=== PATIENT | female | born 1945 | race Caucasian/White ===

== ENCOUNTER 2016-06-18 19:01 | Observation (INO) | payer MEDICARE, BC ==
[~2016-06-18] VITALS: Ht 167.6 cm; Wt 80.2 kg
[~2016-06-18 19:01] MED LIST: ASPIRIN 81M81 MG/TA2 PO; CALCIUM + D 6001 TA1 PO; LEVAQUIN 750MG750 M1 PO; MICARDIS HCT 121 TA1 PO; MOTRIN 600600 MG/TAB PO; MULTIPLE VITAMI1 TAB PO; OS-CAL 500 + D1 TAB PO; PREDNISONE 5MG5 MG PO; RT ADVAIR 228 DISKUS IH; RT SPIRIVA18 MCG IH; TIAZAC300 MG PO; TYLENOL EXTRA500 M1 PO; VENTOLIN0.09 MG IH; VITAMIN D1000 IU PO
[2016-06-18 21:03] LABS: HEMATOCRIT 37.6 % (37.0-47.0); HEMOGLOBIN 12.5 g/dl (12.5-16.0); MEAN CELL VOLUME 89 fl (80.0-100.0); MEAN CORPUSCULAR HEMOGLOBIN 30 pg (27.0-31.0); MEAN CORPUSCULAR HGB CONC 33 g/dl (33.0-37.0); MEAN PLATELET VOLUME 8.8 fl (7.4-10.4); PLATELET COUNT 366 K/mm3 (130-400); RED BLOOD COUNT 4.24 M/mm3 (4.10-5.30); REDCELL DISTRIBUTION WIDTH-CV 13.8 % (11.5-14.5)
[2016-06-18 21:05] LABS: ADD PATHOLOGY DIFF REVIEW NO; WHITE BLOOD COUNT 20.3 K/mm3 (4.8-10.8)
[2016-06-18 21:09] LABS: ADJUSTED CALCIUM 9.7 mg/dL (8.4-10.2); ALBUMIN 3.8 gm/dL (3.5-5.0); BILIRUBIN,TOTAL 0.6 mg/dL (0.0-1.0); CALCIUM 9.5 mg/dL (8.4-10.2); CREATININE, serum 0.7 mg/dL (0.52-1.25); POTASSIUM 3.7 mmol/L (3.4-5.0)
[2016-06-18 21:24] LABS: BAND 1 % (0-10); BASOPHIL 1 % (0-2); NEUTROPHILS 94 % (42.0-75.2); TOTAL CELLS COUNTED 100
[2016-06-18 21:25] LABS: ROULEAUX 1+
[2016-06-18 22:21] VITALS: BP 144/71; PULSE 66; TEMP 98.9
[2016-06-18] MEDS ORDERED: TAZTIA300 PO (22:41)
[2016-06-19 06:28] VITALS: BP 122/57; PULSE 73; TEMP 97.3
[2016-06-19 09:54] VITALS: BP 141/69; PULSE 71; TEMP 98
== END 2016-06-19 12:30 | disposition home or self-care (01) ==
LOC: COL.ER 19:01 → SURG 21:42
PROVIDERS: Emergency Medicine
DX: S01.112A Laceration without foreign body of left eyelid and periocular area, initial encounter (principal); S60.221A Contusion of right hand, initial encounter; S20.219A Contusion of unspecified front wall of thorax, initial encounter; S80.02XA Contusion of left knee, initial encounter; K08.89 Other specified disorders of teeth and supporting structures; W01.198A Fall on same level from slipping, tripping and stumbling with subsequent striking against other object, initial encounter; Y93.01 Activity, walking, marching and hiking; R51 Headache; R11.0 Nausea; Y92.009 Unspecified place in unspecified non-institutional (private) residence as the place of occurrence of the external cause; M06.9 Rheumatoid arthritis, unspecified; I10 Essential (primary) hypertension; J43.9 Emphysema, unspecified; Z87.891 Personal history of nicotine dependence
CPT/HCPCS: G0378; J1170; J1885; J2405; J3010; J7030; Q9967

== ENCOUNTER 2018-11-07 17:56 | Inpatient (IN) | payer MEDICARE, BC ==
[~2018-11-07] VITALS: Ht 175.3 cm; Wt 94.5 kg
[2018-11-07] VITALS (260 sets, daily range): BP systolic 111–113; BP diastolic 70–89; PULSE 117–123; TEMP 98.9; O2SAT 89–100
[~2018-11-07 17:56] MED LIST changes: -OS-CAL 500 + D1 TAB PO; +TAZTIA300 PO; +VITAMIN D 1001000 IU PO
[2018-11-07 20:17] LABS: HEMATOCRIT 37.8 % (37.0-47.0); MEAN CELL VOLUME 90 fl (80.0-100.0); MEAN CORPUSCULAR HEMOGLOBIN 29 pg (27.0-31.0); MEAN CORPUSCULAR HGB CONC 32 g/dl (33.0-37.0); MEAN PLATELET VOLUME 8.3 fl (7.4-10.4); PLATELET COUNT 451 K/mm3 (130-400); RED BLOOD COUNT 4.19 M/mm3 (4.10-5.30); REDCELL DISTRIBUTION WIDTH-CV 13.7 % (11.5-14.5)
[2018-11-07 20:41] LABS: ALANINE AMINOTRANSFERASE 62 U/L (9-52); ALBUMIN 3.2 gm/dL (3.5-5.0); ALKALINE PHOSPHATASE 113 U/L (50-136); ANION GAP 10 mmol/L (7-16); AST,SGOT 82 U/L (15-37); BILIRUBIN,TOTAL 0.6 mg/dL (0.0-1.0); BLOOD UREA NITROGEN 28 mg/dL (7-17); CALCIUM 9.6 mg/dL (8.4-10.2); CARBON DIOXIDE 24 mmol/L (22-30); CHLORIDE 104 mmol/L (98-107); CREATININE, serum 0.91 (0.52-1.25); GLUCOSE 148 mg/dL (74-106); POTASSIUM 3.7 mmol/L (3.4-5.0); SODIUM 138 mmol/L (137-145); TOTAL PROTEIN 6.5 gm/dL (6.4-8.2)
[2018-11-07 20:53] LABS: TROPONIN-I < 0.012 ng/mL (0.000-0.035)
[2018-11-07 21:17] LABS: MUCOUS Present /lpf; PH 5 (5-8); SQUAMOUS EPITHELIAL 0-2 /hpf; URINE APPEARANCE Hazy; URINE BACTERIA None Seen /hpf; URINE BILIRUBIN Negative (NEGATIVE); URINE BLOOD Negative (NEGATIVE); URINE COLOR Yellow; URINE GLUCOSE Negative (NEGATIVE); URINE KETONE Negative (NEGATIVE); URINE LEUKOCYTE ESTERASE Negative (NEGATIVE); URINE NITRATE Negative (NEGATIVE); URINE PROTEIN(semi-quant) Negative (NEGATIVE); URINE RBC 0-2 /hpf; URINE UROBILINOGEN Negative (NEGATIVE)
[2018-11-07 21:46] LABS: BAND 1 % (0-10); LYMPHOCYTE 4 % (20.0-51.0); NEUTROPHILS 90 % (42.0-75.2)
[2018-11-07 21:48] LABS: PLATELET ESTIMATE INCREASED (NORMAL)
[2018-11-07 21:53] LABS: COLLECTION METHOD CLEAN CATCH
[2018-11-07] MEDS ORDERED: ELIQUIS 5MG PO (22:14)
--- NOTE | 2018-11-07 23:53 | NUR ---
PT GETTING VERY TIRED AND OUT OF BREATH EVERYTIME SHE NEEDS TO GO TO THE BEDSIDE LUIS, WAGNER PUT IN. SUCTION AT 50 MMHG AND PT VERBALIZES SHE FEELS COMFORTABLE. WILL CONTINUE TO MONITOR.
[2018-11-08] VITALS (1313 sets, daily range): BP systolic 95–127; BP diastolic 58–69; PULSE 90–114; TEMP 98–101.2; O2SAT 90–100
[2018-11-08 06:35] LABS: HEMOGLOBIN 10.6 g/dl (12.5-16.0); MEAN CELL VOLUME 90 fl (80.0-100.0); MEAN CORPUSCULAR HEMOGLOBIN 29 pg (27.0-31.0); MEAN CORPUSCULAR HGB CONC 32 g/dl (33.0-37.0); MEAN PLATELET VOLUME 8.1 fl (7.4-10.4); PLATELET COUNT 401 K/mm3 (130-400); REDCELL DISTRIBUTION WIDTH-CV 13.7 % (11.5-14.5)
[2018-11-08 06:38] LABS: HEMATOCRIT 33.3 % (37.0-47.0)
[2018-11-08 06:49] LABS: ALBUMIN 2.8 gm/dL (3.5-5.0); BILIRUBIN,TOTAL 0.7 mg/dL (0.0-1.0); CALCIUM 8.3 mg/dL (8.4-10.2); CREATININE, serum 0.88 (0.52-1.25); POTASSIUM 3.5 mmol/L (3.4-5.0); TOTAL PROTEIN 5.9 gm/dL (6.4-8.2)
[2018-11-08 07:02] LABS: LYMPHOCYTE 4 % (20.0-51.0); METAMYELOCYTE 1 % (0-0); NEUTROPHILS 88 % (42.0-75.2)
[2018-11-08 07:03] LABS: PLATELET ESTIMATE INCREASED (NORMAL)
--- NOTE | 2018-11-08 08:56 | NUR ---
Vancomycin Initial Dosing Pharmacy Note Ordering provider: Jamilah Gaitan W., MD Indication/duration: PNA -HOSP Relevant comorbidities: ON LEVA PRIOR X 7 DAYS LABS: SCR 0.88 CRCL ~49 Recommendation: Loading dose: 1.5 grams Maintenance dose: 1.5 grams every 12 hours Trough goal: 15-20 ug/mL
--- NOTE | 2018-11-08 10:21 | NUR ---
Patient lives at home in [place], [place] with her (Shawn Chopra [phone]) and plans to return home upon recovery. Patient is independent with daily living activities and is retired from a local [employer]. Patient does not have durable medical equipment anticipated needs at this time, her primary care physician is Dr. Giorgio Easley and her family physician is Dr. Mario Brown, her [facility] is [facility] and she does have advance direcives of healthcare completed but they are not currently in her medical chart. Patient's daughter (Marianna Hester [phone]) is supportive of the patient as needed as well. No further needs and case management social worker will follow as needed.
--- NOTE | 2018-11-08 19:05 | NUR ---
Bedside report received from SARAH Edwards.
--- NOTE | 2018-11-08 20:00 | NUR ---
Patient awake resting in bed watching TV. Patient is alert and oriented x4. No complaints of pain. Patient has a purewick catheter in place and has urine present in the tube. Pads under patient are dry. Assessment complete. Lungs are clear bilaterally and diminished in the bases, especially LLL. Patient has no complaints of cough. She is currently on 3L NC and tolerating well. Patient is SOB with exertion. HR and rhythm are regular with normal S1 and S2 heard. Patient is in sinus rhythm with occassional PVC's. Bowel sounds are active x4. Patient is passing gas. Patient has no further needs at this time. Will continue to monitor. Call light within reach.
--- NOTE | 2018-11-08 20:40 | NUR ---
Dr. Mcdonough at the bedside at this time.
[2018-11-09] VITALS (1388 sets, daily range): BP systolic 94–118; BP diastolic 43–64; PULSE 97–112; TEMP 98.7–101.1; O2SAT 48–100
--- NOTE | 2018-11-09 | NUR ---
Patient asleep at this time but awakens easily to name. No complaints of pain. Vitals obtained and remain stable. No further needs. Will continue to monitor.
--- NOTE | 2018-11-09 01:26 | NUR ---
Patient awake and requesting to sit on the bedpan. Assisted with this. Patient passes a lot of gas, but no stool is produced. Assessment complete. Patient is febrile at 101.1 orally, tylenol provided. Patient has no complaints of pain. She is alert and oriented x4 and follows commands. Lungs are clear in upper lobes bilaterally with diminished bases. Patient becomes very dyspneic with any kind of exertion. Patient states she is coughing up small amounts of yellow sputum now. HR is tachycardic and rhythm is irregular as patient is in afib. Patient is asymptomatic with it. Bowel sounds are active x4. Pulses are palpable in all extremities. Patient has no further needs at this time. Will continue to monitor. Call light within reach
--- NOTE | 2018-11-09 04:00 | NUR ---
Patient awakens to name. Vitals obtained. Temperature is elevated at 100.3, tylenol to be given. Patient has no complaints of pain or SOB. Will continue to monitor. Call light within reach.
[2018-11-09 05:22] LABS: HEMOGLOBIN 10.6 g/dl (12.5-16.0); MEAN CELL VOLUME 88 fl (80.0-100.0); MEAN CORPUSCULAR HEMOGLOBIN 29 pg (27.0-31.0); MEAN CORPUSCULAR HGB CONC 33 g/dl (33.0-37.0); MEAN PLATELET VOLUME 8.2 fl (7.4-10.4); PLATELET COUNT 398 K/mm3 (130-400); RED BLOOD COUNT 3.67 M/mm3 (4.10-5.30); REDCELL DISTRIBUTION WIDTH-CV 13.4 % (11.5-14.5)
[2018-11-09 05:23] LABS: HEMATOCRIT 32.4 % (37.0-47.0)
[2018-11-09 05:32] LABS: ALBUMIN 2.7 gm/dL (3.5-5.0); BILIRUBIN,TOTAL 0.7 mg/dL (0.0-1.0); CALCIUM 8.3 mg/dL (8.4-10.2); CREATININE, serum 0.77 (0.52-1.25); TOTAL PROTEIN 5.8 gm/dL (6.4-8.2)
[2018-11-09 05:36] LABS: POTASSIUM 2.9 mmol/L (3.4-5.0)
[2018-11-09 05:39] LABS: BASOPHIL 1 % (0-2); EOSINOPHIL 4 % (0-4); HYPOCHROMIA 1+; LYMPHOCYTE 8 % (20.0-51.0); NEUTROPHILS 70 % (42.0-75.2); PLATELET ESTIMATE NORMAL (NORMAL)
--- NOTE | 2018-11-09 07:00 | NUR ---
RECEIVED REPORT FROM SARAH MATTHEW. PT SITTING UP IN BED WATCHING TV. PT ON 3L VIA NC. CALL LIGHT WITHIN REACH. VSS. ASSISTED PT TO ORDER BREAKFAST AT THIS TIME.
--- NOTE | 2018-11-09 07:15 | NUR ---
Bedside report given to SARAH Perea.
--- NOTE | 2018-11-09 09:45 | NUR ---
DR KEENE AT BEDSIDE FOR ASSESSMENT, NEW ORDERS RECEIVED. CHARGE NURSE AND NUCLEAR MEDICINE PHYSICIAN NOITIFIED OF TRANSFER ORDERS.
--- NOTE | 2018-11-09 11:30 | NUR ---
US TECH AT BEDSIDE FOR ECHO, PT VERBALIZES UNDERSTANDING OF EXAM.
--- NOTE | 2018-11-09 12:11 | NUR ---
First visit from the tile mechanic helper. No needs rigth now.
[2018-11-09] MEDS ORDERED: PLAVIX 75MG TAB75 MG PO (13:51)
--- NOTE | 2018-11-09 14:20 | NUR ---
PHYSICAL THERAPY AT BEDSIDE WORKING WITH PT. PT INTERACTIVE WITH THERAPY.
--- NOTE | 2018-11-09 15:06 | NUR ---
HR 160s. PT DENIES ANY CP. APPEARS TO BE SHOB. PT STATES SHE CAN FEEL HER HEART POUNDING IN HER NECK. ATTEMPT TO MOISE RUBIN, UNSUCCESSFUL. DR KEENE NOTIFIED. NEW ORDERS. PT AND AT BEDSIDE EDUCATED ON METOPROLOL IV AND MONITORING OF HER HR AND BP. BOTH VERBALIZED UNDERSTANDING. PT CONTINUES TO DENY CP AT THIS TIME. CALL LIGHT WITHIN REACH. CLOSE MONITORING OF HR AND BP.
--- NOTE | 2018-11-09 15:15 | NUR ---
DR KEENE AT BEDSIDE MONITORING PT.
--- NOTE | 2018-11-09 15:20 | NUR ---
LAB AT BEDSIDE.
[2018-11-09 15:42] LABS: CALCIUM 8.7 mg/dL (8.4-10.2); CREATININE, serum 0.74 (0.52-1.25); MAGNESIUM 1.9 mg/dL (1.6-2.3); POTASSIUM 3.7 mmol/L (3.4-5.0)
--- NOTE | 2018-11-09 16:30 | NUR ---
PT OFF BEDPAN AT THIS TIME. PT UNSUCCESSFUL IN HAVING A BM. PUREWICK CATHETER CHANGED AT THIS TIME. LINEN AND GOWN CHANGED AT THIS TIME. PT STATES IT IS A LOT OF WORK FOR HER TO ROLL AROUND THE BED AND IS HARD FOR HER TO BREATHE. PT NOTED SHE STARTED COUGHING UP SPUTUM MORE AFTER ROLLING AROUND. EDUCATED PT ON MOVEMENT IS GOOD FOR HER TO HELP BREAK UP THE MUCUS WITHIN, VERBALIZED UNDERSTANDING. BED LOWERED. VSS. CALL LIGHT WITHIN REACH. FAMILY BROUGHT BACK TO BEDSIDE.
--- NOTE | 2018-11-09 18:00 | NUR ---
DR KEENE AT BEDSIDE FOR ASSESSMENT. NEW ORDERS.
--- NOTE | 2018-11-09 18:10 | NUR ---
SPOKE TO ASHER ABOUT PT'S AFIB RVR TODAY AND PT CURRENTLY HR 130s. ORDERS FOR EKG, RT NOTIFIED.
--- NOTE | 2018-11-09 18:35 | NUR ---
RT AT BEDSIDE FOR EKG.
--- NOTE | 2018-11-09 18:48 | NUR ---
NOTIFIED DR STERLING OF EKG RESULTS, NEW ORDERS RECEIVED.
--- NOTE | 2018-11-09 19:00 | NUR ---
Bedside report received from SARAH Crawford and SARAH Perea
--- NOTE | 2018-11-09 20:30 | NUR ---
Patient back in normal sinus rhythm at this time with ectopy of PAC's and PVC's with some episodes of bigeminy and trigeminy. Patient remains tachycardic in the low 100's.
--- NOTE | 2018-11-09 21:20 | NUR ---
Patient's daughter calls at this time to check on patient and ask some questions about care. Educated on potassium and reasons for replacement. Daughter had concerns that she was more confused today. Patient has been alert and oriented x4 for me and has answered and held conversations appropriately. She has no further questions at this time.
--- NOTE | 2018-11-09 22:30 | NUR ---
patient awake at this time and requesting to use the bedpan again, provided. Patient produces two small hard round stools and a lot of gas. No further needs. Will continue to monitor.
[2018-11-10] VITALS (1366 sets, daily range): BP systolic 91–141; BP diastolic 55–77; PULSE 95–109; TEMP 98.2–100; O2SAT 90–100
--- NOTE | 2018-11-10 | NUR ---
Patient asleep at this time, awakens to name. She has no complaints of pain. vitals obtained and remain stable. Patient is still in normal sinus rhythm. Will continue to monitor. Call light within reach.
--- NOTE | 2018-11-10 04:30 | NUR ---
Patient awake at this time and states that she is not feeling well, temperature taken and is 100.0. asked patient if she would like some tylenol, she states yes and they are provided. Repositioned patient for comfort and got her boosted in the bed with assistance from SARAH Delcid. Removed patient's current purewick catheter and pericare provided. New catheter placed. Patient has no further needs at this time and just requests to sleep some more. Lights turned out and door shut. Will continue to monitor. Call light within reach.
[2018-11-10 05:25] LABS: HEMOGLOBIN 10.8 g/dl (12.5-16.0); MEAN CELL VOLUME 87 fl (80.0-100.0); MEAN CORPUSCULAR HEMOGLOBIN 29 pg (27.0-31.0); MEAN CORPUSCULAR HGB CONC 33 g/dl (33.0-37.0); MEAN PLATELET VOLUME 8.4 fl (7.4-10.4); PLATELET COUNT 422 K/mm3 (130-400); RED BLOOD COUNT 3.77 M/mm3 (4.10-5.30); REDCELL DISTRIBUTION WIDTH-CV 13.4 % (11.5-14.5)
[2018-11-10 05:29] LABS: HEMATOCRIT 32.8 % (37.0-47.0)
[2018-11-10 05:35] LABS: CALCIUM 8.5 mg/dL (8.4-10.2); CREATININE, serum 0.75 (0.52-1.25); POTASSIUM 3.5 mmol/L (3.4-5.0)
[2018-11-10 05:46] LABS: BASOPHIL 1 % (0-2); HYPOCHROMIA 1+; LYMPHOCYTE 2 % (20.0-51.0); MYELOCYTE 2 % (0-0); NEUTROPHILS 89 % (42.0-75.2); PLATELET ESTIMATE INCREASED (NORMAL)
--- NOTE | 2018-11-10 07:10 | NUR ---
Bedside report given to SARAH Hilton
--- NOTE | 2018-11-10 07:10 | NUR ---
Bedside report recieved from SARAH Dela Cruz. MIVF running at ordered rate. Patient denies needs at this time. Purewick in place for UO. 3LO2 in place per NC. Care assumed.
--- NOTE | 2018-11-10 07:32 | NUR ---
Dr. Bennett rounds at this time. Orders as entered CPOE.
--- NOTE | 2018-11-10 07:32 | NUR ---
CT called and plan made to transport patient for ordered CT chest between 0900 and 0930.
--- NOTE | 2018-11-10 08:12 | NUR ---
Patient with nausea and emesis while taking am medications. Cool rag provided to forehead, prn zofran as documented. Will continue to monitor.
--- NOTE | 2018-11-10 09:07 | NUR ---
Patient transported to CT via WC for ordered exam.
--- NOTE | 2018-11-10 09:36 | NUR ---
Patient returns from CT and is returned to ICU monitors.
--- NOTE | 2018-11-10 09:50 | NUR ---
Bedside thoracentesis completed by Dr. Bennett with prior consent signed. Procedure duration from 937 to 949. This RN to monitor. Patient tolerates procedure without complication with approximately 30ml of fluid removed. Labs ordered as entered CPOE by MD. Care ongoing.
--- NOTE | 2018-11-10 09:55 | NUR ---
Dr. Bennett calls consult to Dr. Sims.
--- NOTE | 2018-11-10 10:01 | NUR ---
Dr. Fernandes rounds at this time. Orders as entered CPOE.
--- NOTE | 2018-11-10 10:03 | NUR ---
Consult called to Dr. Owen.
--- NOTE | 2018-11-10 10:53 | NUR ---
PICC inserted at this time by ROOPA
[2018-11-10 11:13] LABS: GLUCOSE,PLEURAL FLUID 91 mg/dL; TOTAL PROTEIN,PLEURAL FLUID 3.4 gm/dL
[2018-11-10 11:15] LABS: PLEURAL FLUID RBC 11000 /mm3 (0-0); PLEURAL FLUID WBC 17845 /mm3
[2018-11-10 12:12] LABS: PLEURAL FLUID APPEARANCE HAZY; PLEURAL FLUID COLOR YELLOW
--- NOTE | 2018-11-10 18:57 | NUR ---
Bedside report received from SARAH Hilton
--- NOTE | 2018-11-10 19:45 | NUR ---
Patient awake and watching TV in bed. She is alert and oriented x4 and follows commands. Assessment complete. Patients lungs are clear in the upper lobes with diminished bases with LLL being absent. HR and rhythm are regular with normal S1 and S2, she is tachycardic in the low 100's. Bowel sounds are active x4. Pulses are palpable in all extremities. Patient has no complaints of pain. States she will need to use the restroom soon, but wants to wait for now. She will call when ready. No further needs at this time. Will continue to monitor. Call light within reach.
[2018-11-10 21:25] LABS: MUCOUS Present /lpf; PH 6 (5-8); SQUAMOUS EPITHELIAL 0-2 /hpf; URINE APPEARANCE Cloudy; URINE BACTERIA Rare /hpf; URINE BILIRUBIN Negative (NEGATIVE); URINE BLOOD 2+ (NEGATIVE); URINE COLOR Yellow; URINE GLUCOSE Negative (NEGATIVE); URINE KETONE Negative (NEGATIVE); URINE LEUKOCYTE ESTERASE 3+ (NEGATIVE); URINE NITRATE Negative (NEGATIVE); URINE PROTEIN(semi-quant) 1+ (NEGATIVE); URINE UROBILINOGEN Negative (NEGATIVE)
[2018-11-10 21:28] LABS: COLLECTION METHOD CLEAN CATCH
[2018-11-11] VITALS (1195 sets, daily range): BP systolic 112–123; BP diastolic 47–73; PULSE 90–105; TEMP 98.1–99; O2SAT 88–100
--- NOTE | 2018-11-11 | NUR ---
Patient asleep, but awakens to door opening. Patient is showing no signs of distress and does not have complaints of pain. Vitals obtained and remain stable. Patient would like to go to sleep now. Lights turned off and door closed. No further needs at this time. Will continue to monitor. Call light within reach.
--- NOTE | 2018-11-11 04:00 | NUR ---
Patient calls at this time and needs help getting adjusted in bed. Assisted patient with this. She has no complaints of pain, just some tenderness in her belly if pressure is applied. Vitals obtained and remain WNL. No further needs at this time. Will continue to monitor. Call light within reach.
[2018-11-11 04:55] LABS: MEAN CELL VOLUME 89 fl (80.0-100.0); MEAN CORPUSCULAR HGB CONC 33 g/dl (33.0-37.0); MEAN PLATELET VOLUME 8.4 fl (7.4-10.4); PLATELET COUNT 428 K/mm3 (130-400); RED BLOOD COUNT 3.41 M/mm3 (4.10-5.30); REDCELL DISTRIBUTION WIDTH-CV 13.4 % (11.5-14.5)
[2018-11-11 05:00] LABS: HEMATOCRIT 30.2 % (37.0-47.0); HEMOGLOBIN 9.8 g/dl (12.5-16.0); MEAN CORPUSCULAR HEMOGLOBIN 29 pg (27.0-31.0)
[2018-11-11 05:06] LABS: CALCIUM 8.2 mg/dL (8.4-10.2); CREATININE, serum 0.83 (0.52-1.25); POTASSIUM 3.8 mmol/L (3.4-5.0)
[2018-11-11 05:13] LABS: MYELOCYTE 1 % (0-0); NEUTROPHILS 96 % (42.0-75.2); PLATELET ESTIMATE INCREASED (NORMAL)
[2018-11-11 05:14] LABS: HYPOCHROMIA 1+
--- NOTE | 2018-11-11 07:00 | NUR ---
RECEIVED REPORT FROM SARAH MATTHEW. PT SLEEPING AT THIS TIME. NS INFUSING AT 75ML/HR. PT ON 4L VIA NC. VSS. PUREWICK IN PLACE. CALL LIGHT WITHIN REACH.
--- NOTE | 2018-11-11 07:07 | NUR ---
Bedside report given to SARAH Perea
--- NOTE | 2018-11-11 07:25 | NUR ---
DR HINDS AT BEDSIDE FOR ASSESSMENT.
--- NOTE | 2018-11-11 09:30 | NUR ---
PT ASSISTED X1 TO BSC AND THEN TO RECLINER BY PHYSICAL THERAPY. CALL LIGHT WITHIN REACH. PUREWICK CATHETER CHANGED AT 1000. PT REMAINS ON 4L VIA NC. REMAINS AT BEDSIDE. DENIES ANY FURTHER NEEDS AT THIS TIME. VSS.
--- NOTE | 2018-11-11 10:34 | NUR ---
DR SU AT BEDSIDE FOR ASSESSMENT.
--- NOTE | 2018-11-11 11:11 | NUR ---
O2 DECREASED TO 3L VIA NC. PT REMINS IN RECLINER AT THIS TIME. CALL LIGHT WITHIN REACH.
--- NOTE | 2018-11-11 12:12 | NUR ---
PT ASSISTED TO BSC THEN BACK TO BED WITH X1 ASSIST. PT TOLERATED WELL. PT ABLE TO REPOSITION SELF IN BED. PUREWICK CATHETER CHANGED. CALL LIGHT WITHIN REACH. IV INFUSING WITHOUT DIFFICULTIES. VSS.
--- NOTE | 2018-11-11 12:45 | NUR ---
DR PLATA AT BEDSIDE TO DISCUSS CHEST TUBE PLACEMENT TOMORROW. ORDERS FOR PT TO BE NPO AFTER MIDNIGHT TONIGHT FOR PROCEDURE TOMORROW. PT VERBALIZED UNDERSTANDING.
--- NOTE | 2018-11-11 12:58 | NUR ---
O2 DECREASED TO 2L VIA NC. NO ACUTE S/S OF RESP DISTRESS NOTED. PT ABLE TO TALK IN FULL SENTENCES. DENIES ANY NEEDS AT THIS TIME.
--- NOTE | 2018-11-11 13:31 | NUR ---
UPDATED DR BALL ON PT'S STATUS, NO NEW ORDERS.
--- NOTE | 2018-11-11 13:33 | NUR ---
SPOKE WITH DR PLATA'S NURSE, ZENAIDA RN, FOR CHEST TUBE PLACEMENT SCHEDULED FOR 1130 TOMORROW MORNING.
--- NOTE | 2018-11-11 16:45 | NUR ---
DR HINDS AT BEDSIDE TO CHECK ON PT AND DISCUSS POC FOR CHEST TUBE PLACEMENT. PT VERBALIZED UNDERSTANDING. DENIES ANY NEEDS AT THIS TIME.
--- NOTE | 2018-11-11 21:00 | NUR ---
Patient assessed, vitals stable, denies pain. Will continue to monitor.
[2018-11-12] VITALS (822 sets, daily range): BP systolic 101–142; BP diastolic 46–82; PULSE 70–102; TEMP 97.8–98.8; O2SAT 88–100
[2018-11-12 06:23] LABS: MEAN CELL VOLUME 88 fl (80.0-100.0); MEAN CORPUSCULAR HGB CONC 32 g/dl (33.0-37.0); MEAN PLATELET VOLUME 8.6 fl (7.4-10.4); PLATELET COUNT 426 K/mm3 (130-400); RED BLOOD COUNT 3.12 M/mm3 (4.10-5.30); REDCELL DISTRIBUTION WIDTH-CV 13.7 % (11.5-14.5)
[2018-11-12 06:27] LABS: HEMATOCRIT 27.5 % (37.0-47.0); HEMOGLOBIN 8.9 g/dl (12.5-16.0); MEAN CORPUSCULAR HEMOGLOBIN 29 pg (27.0-31.0)
[2018-11-12 06:33] LABS: CALCIUM 7.1 mg/dL (8.4-10.2); CREATININE, serum 0.79 (0.52-1.25); POTASSIUM 3.1 mmol/L (3.4-5.0)
[2018-11-12 07:36] LABS: LYMPHOCYTE 1 % (20.0-51.0); NEUTROPHILS 98 % (42.0-75.2); PLATELET ESTIMATE INCREASED (NORMAL)
--- NOTE | 2018-11-12 10:57 | NUR ---
ENVIRONMENTAL PROTECTION GEOLOGIST student attended clinical rounds with the team. The patient is to have a chest tube insertion today, 11/12. SW will continue to follow to ensure safe discharge.
--- NOTE | 2018-11-12 11:00 | NUR ---
Patient transported to OR by surgical staff for schedule procedure.
--- NOTE | 2018-11-12 11:50 | NUR ---
Patient returns from OR with left sided chest tube. Patient returned to monitors and RN calls for orders for pain managment. Vitals signs and assessment as charted. Chest tube placed to 20cm suction as per orders. Care resumed.
--- NOTE | 2018-11-12 14:43 | NUR ---
CUPOLA MELTER HELPER student met with the patient to present the [email or web address] list of home health agencies in [place], in case home health is recommended. human resources services specialist will continue to follow to ensure a safe discharge.
--- NOTE | 2018-11-12 16:29 | NUR ---
Hospitalist and Pharmacy made aware of vanc trough results. Pharmacy to re-time and dose.
--- NOTE | 2018-11-12 16:32 | NUR ---
Vancomycin Follow-up Pharmacy Note Current regimen: 1.5 g IV q12hr Vancomycin trough: 24.68 Adjustments: Reduction of dose to 1 g IV q12h, restart at 2200 on 11/12/18, and recheck trough on 11/14/18 @ 0930.
--- NOTE | 2018-11-12 20:00 | NUR ---
Patient assessed, vitals stable. States she has nausea and pain. Will administer pain meds and Zofran if availible.
[2018-11-13] VITALS (775 sets, daily range): BP systolic 110–118; BP diastolic 52–79; PULSE 70–85; TEMP 97.7–98.6; O2SAT 92–100
[2018-11-13 06:15] LABS: MEAN CELL VOLUME 90 fl (80.0-100.0); MEAN CORPUSCULAR HGB CONC 32 g/dl (33.0-37.0); MEAN PLATELET VOLUME 8.6 fl (7.4-10.4); PLATELET COUNT 460 K/mm3 (130-400); RED BLOOD COUNT 3.23 M/mm3 (4.10-5.30)
[2018-11-13 06:19] LABS: HEMATOCRIT 29.2 % (37.0-47.0); HEMOGLOBIN 9.2 g/dl (12.5-16.0); MEAN CORPUSCULAR HEMOGLOBIN 28 pg (27.0-31.0)
[2018-11-13 06:29] LABS: C-REACTIVE PROTEIN 7.4 mg/dL (0.0-0.9); CALCIUM 7.1 mg/dL (8.4-10.2); CREATININE, serum 0.76 (0.52-1.25); MAGNESIUM 2.3 mg/dL (1.6-2.3)
[2018-11-13 06:57] LABS: BAND 2 % (0-10); LYMPHOCYTE 1 % (20.0-51.0); NEUTROPHILS 93 % (42.0-75.2)
[2018-11-13 07:00] LABS: PLATELET ESTIMATE INCREASED (NORMAL)
--- NOTE | 2018-11-13 09:15 | NUR ---
DR STERLING PRESENT TO ROUND ON PATIENT. PROVIDER UPDATED ON PATIENT'S STATUS. MEDICATIONS REVIEWED. PROVIDER WOULD LIKE TO D/C HCTZ
--- NOTE | 2018-11-13 11:04 | NUR ---
ASSISTED PT IN RETURNING TO BED. Second Light URINE COLLECTION DEVICE REPLACED. PT TOLERATED WELL.
--- NOTE | 2018-11-13 11:33 | NUR ---
Initial visit; Patient thanked Auto Servicer for looking in on her to catch up on news from both her and Auto Servicer's home. Irish is struggling with her health though hopes she is doing better. Auto Servicer wished her well and God's blessings. Irish appeared to be comforted by Auto Servicer's visit.
--- NOTE | 2018-11-13 19:20 | NUR ---
Received report from SARAH Oconnor.
[2018-11-14] VITALS (401 sets, daily range): BP systolic 111–124; BP diastolic 50–70; PULSE 72–86; TEMP 97.6–97.9; O2SAT 68–100
[2018-11-14 05:05] LABS: MEAN CELL VOLUME 89 fl (80.0-100.0); MEAN CORPUSCULAR HGB CONC 31 g/dl (33.0-37.0); MEAN PLATELET VOLUME 8.6 fl (7.4-10.4); PLATELET COUNT 492 K/mm3 (130-400); RED BLOOD COUNT 3.49 M/mm3 (4.10-5.30)
[2018-11-14 05:10] LABS: HEMATOCRIT 31.2 % (37.0-47.0); HEMOGLOBIN 9.8 g/dl (12.5-16.0); MEAN CORPUSCULAR HEMOGLOBIN 28 pg (27.0-31.0)
[2018-11-14 05:15] LABS: CALCIUM 7.7 mg/dL (8.4-10.2); CREATININE, serum 0.96 (0.52-1.25); MAGNESIUM 2.4 mg/dL (1.6-2.3)
[2018-11-14 06:27] LABS: BAND 3 % (0-10); LYMPHOCYTE 7 % (20.0-51.0); NEUTROPHILS 86 % (42.0-75.2)
[2018-11-14 06:28] LABS: ANISOCYTOSIS 1+; HYPOCHROMIA 1+; POIKILOCYTOSIS 1+
--- NOTE | 2018-11-14 07:17 | NUR ---
Gave report to SARAH Weiner.
--- NOTE | 2018-11-14 07:17 | NUR ---
Report received from Ada SMITH. Patient sitting up in bed with eyes closed. Call light at side. Chest tube collection canister secured to bed.
--- NOTE | 2018-11-14 08:20 | NUR ---
Left chest tube dressing saturated with blood and leaking. Current dressing removed and site inspected. Chest tubing kinked, straightened and allowed to drain. Dressing reapplied and secured. Patient tolerates well, will monitor for continued bleeding. Purewick to suction and patient tolerating well. Denies needs at this time. Call light in reach.
--- NOTE | 2018-11-14 10:25 | NUR ---
Vancomycin Follow-up Pharmacy Note Current regimen: VANCOMYCIN 1G Q12H Vancomycin trough: 27.8 Adjustments: HOLD 11/14/18 AM DOSE, RESTART VANCOMYCIN 750MG Q12H AT 2230. TROUGH 11/16/18 @ 1000.
--- NOTE | 2018-11-14 12:00 | NUR ---
PT here to see patient. This RN and PT assisted patient up to BSC and then to recliner. Patient needs 1 assist, RN just there to help with chest tube for transfer. Patient tolerates fair, does complain of pain to that left chest tube site. Will give PRN Toradol and see if that helps with pain management. Purewick removed while patient up in chair at her request. in room. Call light at side and personal items in reach.
--- NOTE | 2018-11-14 14:12 | NUR ---
Report called to Magalis SMITH. Will transfer to room 348 when patient finished with lunch
--- NOTE | 2018-11-14 14:40 | NUR ---
Transferred to room 348 via wheel chair. RN and ACADEMIC AFFAIRS MANAGER in room to meet patient. Transferred to bed with 1:1 assist and tolerates well. Assisted Magalis RN with putting purwick cath in place. Patient tolerates procedure well, attached to wall suction. Call light in reach
--- NOTE | 2018-11-14 14:45 | NUR ---
Received patient from ICU per w/c. Alert. No complaints. O2 on at 3L per nasal cannula. Left chest tube to water seal. Family here.
--- NOTE | 2018-11-14 18:00 | NUR ---
No c/o pain or shortness of breath.
[2018-11-15 01:22] VITALS: BP 125/66; PULSE 88; TEMP 97.9
[2018-11-15 05:41] VITALS: BP 134/62; PULSE 82; TEMP 97.7
[2018-11-15 05:45] LABS: MEAN CELL VOLUME 89 fl (80.0-100.0); MEAN CORPUSCULAR HGB CONC 32 g/dl (33.0-37.0); MEAN PLATELET VOLUME 8.6 fl (7.4-10.4); PLATELET COUNT 485 K/mm3 (130-400); RED BLOOD COUNT 3.23 M/mm3 (4.10-5.30)
[2018-11-15 05:47] LABS: CREATININE, serum 1.02 (0.52-1.25); HEMATOCRIT 28.8 % (37.0-47.0); HEMOGLOBIN 9.3 g/dl (12.5-16.0); MEAN CORPUSCULAR HEMOGLOBIN 29 pg (27.0-31.0)
[2018-11-15 06:16] LABS: BAND 2 % (0-10); LYMPHOCYTE 2 % (20.0-51.0); METAMYELOCYTE 1 % (0-0); NEUTROPHILS 92 % (42.0-75.2); PLATELET ESTIMATE INCREASED (NORMAL)
[2018-11-15 06:17] LABS: HYPERSEGMENTED POLYS PRESENT
--- NOTE | 2018-11-15 06:36 | NUR ---
PT'S EXTERNAL CATHETER WAS REPLACED AT APPROX. 0600 THIS MORNING. NO c/o PAIN WITH THE EXCEPTION OF A LITTLE DISCOMFORT AT CHEST TUBE ENTRY SITE.
[2018-11-15 08:55] VITALS: BP 119/54; PULSE 91; TEMP 97.6
--- NOTE | 2018-11-15 10:30 | NUR ---
Dr. Cruz dc'd chest tube. Vaseline pressure dressing to site. Patient tolerated procedure well. No c/o shortness of breath. O2 on at 2L per nasal cannula.
[2018-11-15 12:24] VITALS: BP 128/68; PULSE 86; TEMP 97.6
[2018-11-15 16:09] VITALS: BP 120/52; PULSE 95; TEMP 97.4
--- NOTE | 2018-11-15 18:00 | NUR ---
Sitting at side of bed. No c/o pain. Serosanguinous drainage from former chest tube site. New pressure dressing applied.
[2018-11-15 19:59] VITALS: BP 128/56; PULSE 93; TEMP 98
--- NOTE | 2018-11-15 22:00 | NUR ---
DRESSING RE-ENFORCED WITH DEBORAH WRAP.
[2018-11-16] VITALS (7 sets, daily range): BP systolic 117–129; BP diastolic 50–67; PULSE 85–101; TEMP 97.3–98.3
--- NOTE | 2018-11-16 05:29 | NUR ---
DRESSING TO LT LATERAL CHEST TUBE SITE CHANGED. OLD DRESSING SATURATED. XEROFORM, 4x4's AND ABD APPLIED.
[2018-11-16 05:47] LABS: CREATININE, serum 0.91 (0.52-1.25); MEAN CELL VOLUME 89 fl (80.0-100.0); MEAN CORPUSCULAR HGB CONC 33 g/dl (33.0-37.0); MEAN PLATELET VOLUME 8.6 fl (7.4-10.4); PLATELET COUNT 455 K/mm3 (130-400); POTASSIUM 4.1 mmol/L (3.4-5.0); RED BLOOD COUNT 2.92 M/mm3 (4.10-5.30); REDCELL DISTRIBUTION WIDTH-CV 14.5 % (11.5-14.5)
[2018-11-16 05:49] LABS: HEMOGLOBIN 8.5 g/dl (12.5-16.0); MEAN CORPUSCULAR HEMOGLOBIN 29 pg (27.0-31.0)
--- NOTE | 2018-11-16 08:00 | NUR ---
PATIENT IS A&O. VSS. C/O MILD DISCOMFORT TO LEFT LAT. CHEST TUBE SITE THAT HAS MOD AMOUNTS OF BLOODY DRAINAGE TO DRESSING NOTED. APPLIED 4X4'S, ABD, FOAM TAPE & ACEWRAP TO PREVIOUS CHEST TUBE SITE. PATIENT DENIES SOB OR CHEST PAIN. NOTED DEMINISHED LLL RIVERA. UPPER A&P LUNG RIVERA CTA. NO COUGH NOTED. PATIENT IS SLOW MOVING BUT IS NOW USING THE BEDSIDE COMMODE. PATIENT VOIDED AND HAD BM THIS AM. RIGHT PICC LINE TO INT. HEAD TO TOE ASSESSMENT COMPLETE.
[2018-11-16 09:02] LABS: BAND 1 % (0-10); LYMPHOCYTE 1 % (20.0-51.0); NEUTROPHILS 95 % (42.0-75.2); NUCLEATED RED BLOOD CELL 1 (0-6); PLATELET ESTIMATE INCREASED (NORMAL); TOXIC GRANULATION PRESENT
--- NOTE | 2018-11-16 11:15 | NUR ---
Follow up visit from the machine applicator cementer. No needs right now.
--- NOTE | 2018-11-16 12:30 | NUR ---
PICC intact right upper arm with sterile dressing change done with insertion site cleansed with chloraprep x 1, chlorhexidine impregnated disk applied, skin prep, stat lock, and tegaderm applied. no signs or symptoms of IV complications noted. no concerns voiced. arm re-wrapped with shirin to protect catheter.
--- NOTE | 2018-11-16 16:30 | NUR ---
PATIENT LEFT LAT. CHEST TUBE SITE BLEED THROUGH OCCLUSIVE DRESSING AGAIN. APPLIED NEW 4X4'S, ABD, FOAM TAPE & ACEWRAP FOR COMPRESSION.
--- NOTE | 2018-11-16 20:30 | NUR ---
Sitting up in bed, alert. Denies pain. Dressing to left chest tube site with DEBORAH dressing CDI. Patient says that she is passing flatus off and on but has not had a bowel movement. Expresses that she is tired and hopes to take a nap. Denies further needs at this time.
--- NOTE | 2018-11-16 23:03 | NUR ---
Lying in bed with eyes closed. Opens eyes when name called. Denies pain or any further needs at this time.
--- NOTE | 2018-11-17 03:15 | NUR ---
Up to commode to urinate and have bowel movment. Upon getting out of bed, dressing to left side of chest where chest tube was is leaking serosanguinous drainage. Removed dressing, large dark red blood clot noted on 4x4's. Area cleansed with saline. Suture intact. Edges well approximated. No redness or edema. 4x4's applied to site and covered with ABD pad. Reinforced with occlusive tape and then an DEBORAH wrap to give the area a pressure dressing. Patient tolerates procedure well. Denies pain. Assisted back into bed. Denies further needs.
[2018-11-17 03:44] VITALS: BP 126/61; PULSE 98; TEMP 98.2
--- NOTE | 2018-11-17 05:42 | NUR ---
Uneventful evening. Dressing change to previous chest tube site on left outer chest one time through the evening. Patient has not complained of any pain. At this time patient resting in bed with eyes closed, respirations even and unlabored, no signs or symptoms of discomfort noted.
[2018-11-17 07:02] LABS: MEAN CELL VOLUME 91 fl (80.0-100.0); MEAN CORPUSCULAR HGB CONC 32 g/dl (33.0-37.0); PLATELET COUNT 381 K/mm3 (130-400); RED BLOOD COUNT 2.63 M/mm3 (4.10-5.30); REDCELL DISTRIBUTION WIDTH-CV 14.8 % (11.5-14.5)
--- NOTE | 2018-11-17 07:14 | NUR ---
Report provided to SARAH Fall.
[2018-11-17 07:17] LABS: HEMATOCRIT 23.8 % (37.0-47.0); HEMOGLOBIN 7.6 g/dl (12.5-16.0); MEAN CORPUSCULAR HEMOGLOBIN 29 pg (27.0-31.0)
[2018-11-17 07:18] LABS: CALCIUM 8.1 mg/dL (8.4-10.2); CREATININE, serum 0.79 (0.52-1.25); POTASSIUM 4.2 mmol/L (3.4-5.0)
[2018-11-17 07:35] VITALS: BP 131/60; PULSE 98; TEMP 98.2
--- NOTE | 2018-11-17 09:45 | NUR ---
Patient alert and oriented, answers questions appropriately. See assessment. Heart tones strong and irregular, radial pulse palpable. Lungs decreased in bases, clear in upper lobes. Encouraged IS, CDB, leg exercises. No other c/o at this time.
[2018-11-17 09:54] LABS: BAND 1 % (0-10); HYPOCHROMIA 2+; LYMPHOCYTE 1 % (20.0-51.0); METAMYELOCYTE 2 % (0-0); MYELOCYTE 4 % (0-0); NEUTROPHILS 91 % (42.0-75.2); PLATELET ESTIMATE NORMAL (NORMAL)
[2018-11-17 11:43] VITALS: BP 140/65; PULSE 105; TEMP 97.9
--- NOTE | 2018-11-17 16:04 | NUR ---
NICKIE met with the patient and her family to discuss home health services. NICKIE presented a list from [email or web address] to the family. The patient chose [facility]. NICKIE faxed referral to [facility]. [facility] reports they can accept the patient for services. NICKIE informed the patient and the patient's nurse. NICKIE will continue to follow to ensure a safe discharge.
[2018-11-17 16:13] VITALS: BP 109/56; PULSE 100; TEMP 97.8
[2018-11-17 18:44] LABS: HEMATOCRIT 23.7 % (37.0-47.0); HEMOGLOBIN 7.5 g/dl (12.5-16.0)
[2018-11-17 20:00] VITALS: BP 127/51; PULSE 102; TEMP 98.1
--- NOTE | 2018-11-17 20:50 | NUR ---
Sitting up in bed. Daughter in room visiting with the patient. Denies pain. Dressing to previous chest tube site on left chest CDI. Patient explains that she is overall feeling better, verbalizes some concern with her blood levels being low and that she may need a blood transfusion. Discussed this further with the patient and that repeat labs will more than likely be obtained in the morning to reassess levels. Patient verbalizes understanding. Denies further needs at this time.
[2018-11-18 00:26] VITALS: BP 133/57; PULSE 100; TEMP 98.1
--- NOTE | 2018-11-18 01:17 | NUR ---
Sitting up in bed with eyes open. Patient explains that she is having nausea. Zofran administered as ordered. Patient repositioned in the bed, denies need to use bathroom. Cool wash cloth provided along with a Sprite as well. Patient denies further needs at this time.
--- NOTE | 2018-11-18 01:56 | NUR ---
Lying in bed on back, eyes closed, respirations even and unlabored. No signs or symptoms of discomfort noted.
[2018-11-18 04:00] VITALS: BP 129/51; PULSE 99; TEMP 98.4
--- NOTE | 2018-11-18 06:20 | NUR ---
Patient had episode of nausea in the middle of the night. Was administered ordered Zofran to alleviate nausea. After medication was administered patient was able to rest with eyes closed. Currently resting in bed with eyes closed, respirations even and unlabored. No signs or symptoms of discomfort noted.
[2018-11-18 06:27] LABS: MEAN CELL VOLUME 92 fl (80.0-100.0); MEAN CORPUSCULAR HGB CONC 32 g/dl (33.0-37.0); MEAN PLATELET VOLUME 8.8 fl (7.4-10.4); PLATELET COUNT 393 K/mm3 (130-400); RED BLOOD COUNT 2.48 M/mm3 (4.10-5.30); REDCELL DISTRIBUTION WIDTH-CV 14.9 % (11.5-14.5)
[2018-11-18 06:29] LABS: HEMATOCRIT 22.7 % (37.0-47.0); HEMOGLOBIN 7.2 g/dl (12.5-16.0); MEAN CORPUSCULAR HEMOGLOBIN 29 pg (27.0-31.0)
[2018-11-18 06:38] LABS: CALCIUM 8.1 mg/dL (8.4-10.2); CREATININE, serum 0.76 (0.52-1.25); POTASSIUM 4.4 mmol/L (3.4-5.0)
--- NOTE | 2018-11-18 07:11 | NUR ---
Report provided to SARAH Fall.
[2018-11-18 08:37] LABS: BAND 3 % (0-10); HYPOCHROMIA 3+; LYMPHOCYTE 2 % (20.0-51.0); METAMYELOCYTE 4 % (0-0); MYELOCYTE 6 % (0-0); NUCLEATED RED BLOOD CELL 1 (0-6); PLATELET ESTIMATE NORMAL (NORMAL)
[2018-11-18 08:38] LABS: NEUTROPHILS 84 % (42.0-75.2)
[2018-11-18 09:18] VITALS: BP 129/51; PULSE 98; TEMP 99.3
--- NOTE | 2018-11-18 10:00 | NUR ---
Patient alert and oriented, answers questions appropriately. See assessment. Lungs decreased in bases, clear in upper lobes. Dressing in place to previous chest tube site, gauze and DEBORAH CDI. No c/o at this time.
[2018-11-18 11:38] VITALS: BP 112/50; PULSE 98; TEMP 98.8
--- NOTE | 2018-11-18 13:42 | NUR ---
INCKIE presented the IM form to the patient. The patient understood and signed the form. A copy was provided to the patient and original was placed in the patient's chart. The patient is needing a walker. NICKIE presented the DME patient choice form. The patient chose [facility] in [place]. A copy of the DME choice form was provided to the patient and the original was placed in the chart. NICKIE faxed order to [facility]. NICKIE will continue to follow.
[2018-11-18 16:35] VITALS: BP 118/52; PULSE 96; TEMP 98.5
--- NOTE | 2018-11-18 20:00 | NUR ---
Pt. sitting up in bed at this time. Pt. is A&OX3, assessment complete. PICC to rt. upperarm patent. Pt. denies pain or other needs at this time. Call light within reach.
[2018-11-18 20:36] VITALS: BP 121/51; PULSE 105; TEMP 98.3
[2018-11-19] VITALS (11 sets, daily range): BP systolic 103–140; BP diastolic 42–56; PULSE 82–103; TEMP 97.5–98.7
[2018-11-19 05:55] LABS: MEAN CELL VOLUME 92 fl (80.0-100.0); MEAN CORPUSCULAR HGB CONC 31 g/dl (33.0-37.0); MEAN PLATELET VOLUME 8.7 fl (7.4-10.4); PLATELET COUNT 331 K/mm3 (130-400); RED BLOOD COUNT 2.35 M/mm3 (4.10-5.30)
[2018-11-19 05:59] LABS: HEMATOCRIT 21.7 % (37.0-47.0); HEMOGLOBIN 6.8 g/dl (12.5-16.0); MEAN CORPUSCULAR HEMOGLOBIN 29 pg (27.0-31.0)
[2018-11-19 06:03] LABS: CALCIUM 7.7 mg/dL (8.4-10.2); CREATININE, serum 0.77 (0.52-1.25)
--- NOTE | 2018-11-19 07:19 | NUR ---
Pt continues to sleep soundly in bed. O2 remains at 2L per NC.
--- NOTE | 2018-11-19 08:10 | NUR ---
Pt is awake and A/Ox4, ambulating from the bathroom to the recliner with SBA + walker, steady gait. Pt states she is having 5/10 pain, stating she has a "scratchy throat" from the dry air. PICC line to the right upper arm is free of complications. Pt denies any other needs.
[2018-11-19 08:11] LABS: BAND 3 % (0-10); EOSINOPHIL 1 % (0-4); LYMPHOCYTE 8 % (20.0-51.0); METAMYELOCYTE 3 % (0-0); MYELOCYTE 2 % (0-0); NEUTROPHILS 83 % (42.0-75.2); PLATELET ESTIMATE NORMAL (NORMAL)
--- NOTE | 2018-11-19 10:22 | NUR ---
Unit of PRBC started at this time per order. Infusion verified with SARAH Abarca. Rate started at 60 ml/hr. Pt was educated on s/s of transfusion reaction, expressed understanding. All initial vital signs were WNL. Nurse to remain at bedside for first 15 min.
--- NOTE | 2018-11-19 10:41 | NUR ---
Pt is tolerating transfusion without difficulty. Rate increased to 100 ml/hr. Dr. Sims in to assess pt. Chest tube site to left side has minimal drainage. Dressing back in place.
--- NOTE | 2018-11-19 12:26 | NUR ---
Pt continues to tolerate blood transfusion without difficulty. Denies pain, denies any other needs.
--- NOTE | 2018-11-19 12:52 | NUR ---
compressed gas plant worker received phone call from daughterMarianna #[phone], stating that family is concerned that patient cannot manage safely at home. Currently family is staying with patient's spouse, as he recently had surgery. Marianna feels that patient is too weak to manage her care and home health is not enough support. Worker met with Dr Mcgarry and rounding team and met with patient. Physician and worker discussed swing bed as an option and patient verbalized that she is agreeable to this discharge plan. Worker made a referral, with faxed information, [facility] and is awaiting acceptance. Tentative plan is to discharge on 11/20/18. Worker contacted patient's spouse, Shawn #[phone], per patient's request and advised of the above information. Worker contacted daughter, Marianna, and advised of the above information. Family is aware that they will need to transport.
--- NOTE | 2018-11-19 13:45 | NUR ---
Pt tolerated blood transfusion without any complications. Pt doing well post transfusion. Denies any other needs.
--- NOTE | 2018-11-19 14:53 | NUR ---
Pt did have small bowel movement, it was soft formed and appeard to be brown in color. Stool for occult was not able to be collected due to stool being mixed with urine in collection hat.
[2018-11-19 15:05] LABS: HEMATOCRIT 27.6 % (37.0-47.0); HEMOGLOBIN 8.8 g/dl (12.5-16.0)
--- NOTE | 2018-11-19 16:13 | NUR ---
Temi with [facility] accepts patient for swing bed on 11/20/18 under the care of Dr Lopez. Dr Lopez requests a physician call prior to discharge at #[phone]. Family is aware that they will transport and will await call from social work on time.
--- NOTE | 2018-11-19 16:15 | NUR ---
social worker health services met with patient and contacted spouse and daughter, Marianna and advised of [facility]'s acceptance to swing bed.
--- NOTE | 2018-11-19 20:05 | NUR ---
Pt. sitting up in bed at this time. Pt. is A&OX3, assessment complete. PICC to rt. upper arm patent. Dressing to lt. lateral chest coming off so changed dressing at this time. 2 4X4's folded and covered with foam tape. Pt. also has an area below incision site where previous tape has caused an abrasion, Placed a telfa dressing to the area to prevent gown from rubbing on skin. Pt. denies pain. Pt. started Golytly bowel prep. Pt. tolerating. Pt. denies further needs, call light within reach.
[2018-11-20] VITALS (12 sets, daily range): BP systolic 106–150; BP diastolic 44–65; PULSE 81–101; TEMP 98–99
--- NOTE | 2018-11-20 06:20 | NUR ---
Pt. slept off and on through the night. Pt. having good progress with bowel prep. Pt. denies pain or other needs at this time. Call light within reach.
[2018-11-20 06:40] LABS: MEAN CELL VOLUME 88 fl (80.0-100.0); MEAN CORPUSCULAR HGB CONC 32 g/dl (33.0-37.0); MEAN PLATELET VOLUME 9.1 fl (7.4-10.4); PLATELET COUNT 321 K/mm3 (130-400); REDCELL DISTRIBUTION WIDTH-CV 16.8 % (11.5-14.5)
[2018-11-20 06:48] LABS: HEMATOCRIT 25.6 % (37.0-47.0); HEMOGLOBIN 8.3 g/dl (12.5-16.0); MEAN CORPUSCULAR HEMOGLOBIN 29 pg (27.0-31.0)
[2018-11-20 06:49] LABS: CALCIUM 7.5 mg/dL (8.4-10.2); CREATININE, serum 0.67 (0.52-1.25); POTASSIUM 3.5 mmol/L (3.4-5.0)
[2018-11-20 07:14] LABS: BAND 2 % (0-10); EOSINOPHIL 1 % (0-4); LYMPHOCYTE 3 % (20.0-51.0); METAMYELOCYTE 3 % (0-0); MYELOCYTE 1 % (0-0); NEUTROPHILS 84 % (42.0-75.2); NUCLEATED RED BLOOD CELL 1 (0-6)
[2018-11-20 07:15] LABS: ANISOCYTOSIS 1+; HYPOCHROMIA 1+
--- NOTE | 2018-11-20 09:45 | NUR ---
Patient alert and oriented, answers questions appropriately. See assessment. Previous left chest tube site with large amount sanguinous drainage noted, dressing changed. Lungs decreased in bases, clear in upper lobes. Continuing bowel prep for colonoscopy this afternoon. No other c/o at this time.
--- NOTE | 2018-11-20 14:00 | NUR ---
Patient to endo for EGD and colonoscopy.
--- NOTE | 2018-11-20 14:13 | NUR ---
[facility] reports they can accept the patient on Friday, 11/23. SW informed the patient's family and the nurse practictioner. catering convention services manager will continue to follow.
--- NOTE | 2018-11-20 15:30 | NUR ---
Patient returns from endo, assessment unchanged.
--- NOTE | 2018-11-20 18:44 | NUR ---
Patient is sitting in bed and finished her broth and is eating sugar free jello. Has no complaints at this time.
--- NOTE | 2018-11-20 21:35 | NUR ---
Up to restroom and returned to bed. Assessment complete. Lungs clear. Heart sounds normal. Bowels active x4. Pulses present throughout. Bilateral lower leg edema +2. Bilateral upper extremity edema +1. PICC to right upper flushed without complications. Left trunk prior chest tube site dressing CDI. Patient has abrasions present from tape-scabbed over. Denies pain. States "I actually feel good." Denies other needs at this time. Call light in reach.
--- NOTE | 2018-11-20 21:37 | NUR ---
Patient daughter called to check on patient. Security code was provided by daughter. Updated. Daughter states patient is in ER at [facility] and will call back later to inform patient on condition.
--- NOTE | 2018-11-20 22:00 | NUR ---
Patient daughter called to inform patient, patient in [facility] for low potassium and low sodium. Patient tearful at this time. Provided emotional support. Will monitor.
--- NOTE | 2018-11-20 23:59 | NUR ---
Patient resting in bed. Denies needs. Call light in reach.
[2018-11-21] VITALS (7 sets, daily range): BP systolic 106–136; BP diastolic 38–66; PULSE 84–95; TEMP 98–100
--- NOTE | 2018-11-21 05:36 | NUR ---
Patient transferred to room 316 from [facility]. Upon arrival to room patient A/O x 4. Denies c/o pain or discomfort. Attitude calm and pleasant. Allergies and code status reviewed. Verbal report received from Julia SMITH. Left chest tube rempval site assessed with Julia during report. Tegaderm/gauze dressing intact. Patient has no other concerns at this time. Orientated to room. Call light and personal items in reach.
--- NOTE | 2018-11-21 05:47 | NUR ---
Report given to Melvina SMITH
[2018-11-21 06:22] LABS: BASO % 0.2 % (0.0-2.0); EOS # 0.2 (0.0-0.7); GRAN % 83.2 % (42.2-75.2); LYMPH # 1.1 (1.2-3.4); LYMPH % 5.7 % (20.0-51.0); MEAN CELL VOLUME 89 fl (80.0-100.0); MEAN CORPUSCULAR HGB CONC 32 g/dl (33.0-37.0); MEAN PLATELET VOLUME 9.1 fl (7.4-10.4); MONO # 1.3 (0.1-0.6); MONO % 6.8 % (1.7-9.3); PLATELET COUNT 307 K/mm3 (130-400); RED BLOOD COUNT 2.97 M/mm3 (4.10-5.30); REDCELL DISTRIBUTION WIDTH-CV 16.4 % (11.5-14.5)
[2018-11-21 06:24] LABS: HEMATOCRIT 26.3 % (37.0-47.0); HEMOGLOBIN 8.5 g/dl (12.5-16.0); MEAN CORPUSCULAR HEMOGLOBIN 29 pg (27.0-31.0)
[2018-11-21 06:34] LABS: CALCIUM 7.5 mg/dL (8.4-10.2); CREATININE, serum 0.71 (0.52-1.25)
--- NOTE | 2018-11-21 15:05 | NUR ---
F/U: Faxed update informatio to [facility]
--- NOTE | 2018-11-21 17:30 | NUR ---
Pt rested in room today, no C/O pain today, Pt travis been stead on feet while ambulating with a walker, VS have remained stable.
[2018-11-22 03:39] VITALS: BP 123/62; PULSE 84; TEMP 97.8
[2018-11-22 06:30] LABS: MEAN CELL VOLUME 90 fl (80.0-100.0); MEAN CORPUSCULAR HGB CONC 32 g/dl (33.0-37.0); MEAN PLATELET VOLUME 9.2 fl (7.4-10.4); PLATELET COUNT 289 K/mm3 (130-400); RED BLOOD COUNT 2.86 M/mm3 (4.10-5.30); REDCELL DISTRIBUTION WIDTH-CV 16.9 % (11.5-14.5)
[2018-11-22 06:46] LABS: CALCIUM 7.9 mg/dL (8.4-10.2); CREATININE, serum 0.76 (0.52-1.25); POTASSIUM 4.2 mmol/L (3.4-5.0)
[2018-11-22 06:56] LABS: HEMATOCRIT 25.8 % (37.0-47.0); HEMOGLOBIN 8.2 g/dl (12.5-16.0); MEAN CORPUSCULAR HEMOGLOBIN 29 pg (27.0-31.0)
[2018-11-22 07:46] LABS: ANISOCYTOSIS 2+; BAND 8 % (0-10); LYMPHOCYTE 2 % (20.0-51.0); METAMYELOCYTE 2 % (0-0); NEUTROPHILS 84 % (42.0-75.2); PLATELET ESTIMATE NORMAL (NORMAL)
[2018-11-22 08:31] VITALS: BP 116/57; PULSE 84; TEMP 98.3
--- NOTE | 2018-11-22 08:49 | NUR ---
Pt awake anfd alert, talkative, no C/O pain at this time, shift assessments complete, left Pt call light in reach, bed in lowest position..
--- NOTE | 2018-11-22 10:22 | NUR ---
slag worker faxed updates including facesheet, progress/nursing notes, medications to [facility] ([phone]). Patient plans to discharg to [facility] 11/23/18.
[2018-11-22 12:42] VITALS: BP 116/68; PULSE 87; TEMP 98.1
--- NOTE | 2018-11-22 16:05 | NUR ---
Rebandaged chest tube site, placed steristrips over open incision site covered with folded 2X2 sterile gauze and tegaderm..
--- NOTE | 2018-11-22 18:41 | NUR ---
Pt resting in room today, spent a good part of the day sitting up in the recliner, no C/O pain, VS have remained stable.
[2018-11-22 20:02] VITALS: BP 105/56; PULSE 90; TEMP 99.1
[2018-11-23] VITALS: BP 110/62; PULSE 87; TEMP 98.8
[2018-11-23 04:21] VITALS: BP 123/54; PULSE 89; TEMP 97.9
[2018-11-23 06:19] LABS: BASO % 0.1 % (0.0-2.0); EOS # 0.2 (0.0-0.7); EOS % 1.2 % (0-4.0); GRAN % 84.2 % (42.2-75.2); LYMPH % 5.4 % (20.0-51.0); MEAN CELL VOLUME 91 fl (80.0-100.0); MEAN CORPUSCULAR HGB CONC 32 g/dl (33.0-37.0); MONO # 1.3 (0.1-0.6); PLATELET COUNT 258 K/mm3 (130-400); RED BLOOD COUNT 2.83 M/mm3 (4.10-5.30); REDCELL DISTRIBUTION WIDTH-CV 16.8 % (11.5-14.5)
[2018-11-23 06:23] LABS: HEMATOCRIT 25.6 % (37.0-47.0); HEMOGLOBIN 8.2 g/dl (12.5-16.0); MEAN CORPUSCULAR HEMOGLOBIN 29 pg (27.0-31.0)
[2018-11-23 06:32] LABS: CALCIUM 8.2 mg/dL (8.4-10.2); CREATININE, serum 0.76 (0.52-1.25); POTASSIUM 4.5 mmol/L (3.4-5.0)
--- NOTE | 2018-11-23 06:59 | NUR ---
Pt had an uneventful night. Reports having a good night. Hoping to be discharged today.
[2018-11-23 08:24] LABS: PATHOLOGY DIFF REVIEW OK
[2018-11-23] MEDS ORDERED: PROTONIX 40MG T40 MG PO (08:26)
[2018-11-23] MEDS ORDERED: LASIX 20MG TABL20 MG PO (08:26)
[2018-11-23] MEDS ORDERED: CORDARONE200 MG/TAB PO (08:27)
[2018-11-23] MEDS ORDERED: CLARITIN 1010 MG/TAB PO (08:27)
[2018-11-23] MEDS ORDERED: CLEOCIN HCL300 MG PO (08:30)
--- NOTE | 2018-11-23 08:30 | NUR ---
PICC intact right upper arm. With sterile technique right upper arm PICC dressing change tablet insertion site cleansed with ChloraPrep 1, chlorhexidine impregnated disc applied, skin prep, StatLock, and Tegaderm applied. No signs or symptoms of IV complications noted. No concerns voiced. Arm wrapped with Ben to protect catheter. The plan is for the patient to be discharged today to [facility].
[2018-11-23] MEDS ORDERED: PROBIOTIC ACID1 EAC3 PO (08:31)
[2018-11-23] MEDS ORDERED: PREDNISONE10 MG PO (08:36)
[2018-11-23 08:40] VITALS: BP 112/58; PULSE 91; TEMP 97.8
--- NOTE | 2018-11-23 09:24 | NUR ---
Pt is awake and A/Ox4, sitting up in the recliner. She denies any pain or discomfort. PICC to right upper arm is free of complications. Pt remains on room air, resp. are even and unlabored. Dressing to left chest is free of complications, steri strips/gauze are in place. No drainage noted. Pt also has multiple skin tears from tape to left chest, open to air. Pt is up with SBA + walker without difficulty. Denies any other needs.
[2018-11-23] MEDS ORDERED: NYSTATIN OR100 MU/ML PO (09:56)
[2018-11-23 11:47] VITALS: BP 122/59; PULSE 93; TEMP 98
--- NOTE | 2018-11-23 13:08 | NUR ---
The patient is to discharge today, 11/23, to [facility]. Transportation to be by private vehicle, via the patient's son-in-law. SW presented and explained the IM form to the patient. The patient verbalized understanding, signed, and she was provided a copy. No additional needs at this time.
--- NOTE | 2018-11-23 14:18 | NUR ---
Pt was discharged to swing bed at [facility]. She left via private vehicle. Report called to nurse, Amber. PICC line left in place per order.
== END 2018-11-23 14:22 | disposition swing bed (61) | DRG 871 ==
LOC: MEDICAL 17:56 → SURG 19:04 → ICU 19:04 → SURG 11-14 14:40 → MEDICAL 11-21 05:43
PROVIDERS: Family Medicine; Hospitalist; Internal Medicine Gastroenterology; Internal Medicine Pulmonary Disease; Nurse Practitioner Family; Nurse Practitioner Primary Care; Physician Assistant; Student in an Organized Health Care Education/Training Program; ADMIT Student in an Organized Health Care Education/Training Program
PROC: 02HV33Z Insertion of Infusion Device into Superior Vena Cava, Percutaneous Approach (ICD-10-PCS; 2018-11-10)
PROC: 0W9B3ZZ Drainage of Left Pleural Cavity, Percutaneous Approach (ICD-10-PCS; 2018-11-10)
PROC: 0W9B30Z Drainage of Left Pleural Cavity with Drainage Device, Percutaneous Approach (ICD-10-PCS; 2018-11-12)
PROC: 0DBL8ZZ Excision of Transverse Colon, Via Natural or Artificial Opening Endoscopic (ICD-10-PCS; 2018-11-20)
PROC: 0DBN8ZZ Excision of Sigmoid Colon, Via Natural or Artificial Opening Endoscopic (ICD-10-PCS; 2018-11-20)
PROC: 0DBM8ZZ Excision of Descending Colon, Via Natural or Artificial Opening Endoscopic (ICD-10-PCS; 2018-11-20)
PROC: 0DB68ZX Excision of Stomach, Via Natural or Artificial Opening Endoscopic, Diagnostic (ICD-10-PCS; principal; 2018-11-20 14:00)
PROC: 0DBK8ZZ Excision of Ascending Colon, Via Natural or Artificial Opening Endoscopic (ICD-10-PCS; 2018-11-20 14:00)
DX: A41.9 Sepsis, unspecified organism (principal); J18.1 Lobar pneumonia, unspecified organism; J44.1 Chronic obstructive pulmonary disease with (acute) exacerbation; I20.0 Unstable angina; J90 Pleural effusion, not elsewhere classified; I31.3 Pericardial effusion (noninflammatory); I48.92 Unspecified atrial flutter; B37.0 Candidal stomatitis; R65.20 Severe sepsis without septic shock; I48.0 Paroxysmal atrial fibrillation; I11.0 Hypertensive heart disease with heart failure; I50.9 Heart failure, unspecified; D50.0 Iron deficiency anemia secondary to blood loss (chronic); K29.70 Gastritis, unspecified, without bleeding; D12.2 Benign neoplasm of ascending colon; D12.3 Benign neoplasm of transverse colon; D12.4 Benign neoplasm of descending colon; D63.8 Anemia in other chronic diseases classified elsewhere; D12.5 Benign neoplasm of sigmoid colon; G47.00 Insomnia, unspecified; G25.81 Restless legs syndrome; M06.9 Rheumatoid arthritis, unspecified; Z90.49 Acquired absence of other specified parts of digestive tract; Z98.51 Tubal ligation status; Z79.82 Long term (current) use of aspirin; Z79.52 Long term (current) use of systemic steroids; Z87.891 Personal history of nicotine dependence; Z88.8 Allergy status to other drugs, medicaments and biological substances; Z91.041 Radiographic dye allergy status; Z98.49 Cataract extraction status, unspecified eye; Z79.01 Long term (current) use of anticoagulants; Z99.81 Dependence on supplemental oxygen; E87.6 Hypokalemia; K59.00 Constipation, unspecified; D72.828 Other elevated white blood cell count; T38.0X5A Adverse effect of glucocorticoids and synthetic analogues, initial encounter; T50.2X5A Adverse effect of carbonic-anhydrase inhibitors, benzothiadiazides and other diuretics, initial encounter; E16.2 Hypoglycemia, unspecified
CPT/HCPCS: 99223-AI; 99232-AI; 99233-AI; A4216; A7041; A7048; A9284; C1751; J0456; J0692; J1650; J1885; J1940; J1956; J2185; J2270; J2405; J2543; J2704; J2920; J3010; J3370; J3480; J7030; J7050; J7512; P9016

== ENCOUNTER → 2020-02-15 | Outpatient (CLI) | payer MEDICARE, BC ==
[~2020-02-15] MED LIST changes: +CLARITIN 1010 MG/TAB PO; +CLEOCIN HCL300 MG PO; +CORDARONE200 MG/TAB PO; +ELIQUIS 5MG PO; +LASIX 20MG TABL20 MG PO; +NYSTATIN OR100 MU/ML PO; +PLAVIX 75MG TAB75 MG PO; +PREDNISONE10 MG PO; +PROBIOTIC ACID1 EAC3 PO; +PROTONIX 40MG T40 MG PO
[2020-02-15 16:27] LABS: C-REACTIVE PROTEIN 1.7 mg/dL (0.0-0.9)
[2020-02-15 16:37] LABS: TROPONIN-I < 0.012 ng/mL (0.000-0.035)
== END ==
LOC: ZCOL.LAB 15:26
PROVIDERS: Internal Medicine Interventional Cardiology
DX: R06.02 Shortness of breath (principal)

== ENCOUNTER 2021-02-06 20:34 | Emergency (ER) | payer MEDICARE, BC ==
[~2021-02-06] VITALS: Ht 162.6 cm; Wt 87.3 kg
[2021-02-06 21:37] LABS: BASO # 0.1 K/mm3 (0.0-0.2); EOS # 0.1 K/mm3 (0.0-0.7); GRAN # 10.4 K/mm3 (1.4-6.5); GRAN % 82.7 % (42.2-75.2); HEMATOCRIT 38.1 % (37.0-47.0); HEMOGLOBIN 11.6 g/dl (12.5-16.0); LYMPH # 0.9 K/mm3 (1.2-3.4); LYMPH % 6.9 % (20.0-51.0); MEAN CELL VOLUME 86 fl (80.0-100.0); MEAN CORPUSCULAR HEMOGLOBIN 26 pg (27-31); MEAN CORPUSCULAR HGB CONC 30 g/dl (33.0-37.0); MEAN PLATELET VOLUME 9.2 fl (7.4-10.4); MONO % 7.8 % (1.7-9.3); PLATELET COUNT 323 K/mm3 (130-400); RED BLOOD COUNT 4.41 M/mm3 (4.10-5.30); REDCELL DISTRIBUTION WIDTH-CV 15.8 % (11.5-14.5)
[2021-02-06 21:55] LABS: ALBUMIN 3.5 gm/dL (3.4-4.8); BILIRUBIN,TOTAL 0.5 mg/dL (0.2-1.2); CALCIUM 9.6 mg/dL (8.4-10.2); CREATININE, serum 0.76 mg/dL (0.57-1.11); POTASSIUM 3.7 mmol/L (3.5-4.5); TOTAL PROTEIN 6.9 gm/dL (6.2-8.1)
[2021-02-06] MEDS ORDERED: ZOFRAN ODT4 MG PO (22:51)
[2021-02-06 23:54] VITALS: BP 156/78; PULSE 79; TEMP 97.9
== END 2021-02-06 23:56 | disposition home or self-care (01) ==
LOC: COL.ER 20:34
PROVIDERS: Emergency Medicine
DX: D27.1 Benign neoplasm of left ovary (principal); J44.9 Chronic obstructive pulmonary disease, unspecified; I10 Essential (primary) hypertension; I48.91 Unspecified atrial fibrillation; Z90.49 Acquired absence of other specified parts of digestive tract; Z98.51 Tubal ligation status; Z79.899 Other long term (current) drug therapy; Z79.52 Long term (current) use of systemic steroids; Z79.51 Long term (current) use of inhaled steroids
CPT/HCPCS: J2405; J2765; J7030

== ENCOUNTER → 2021-10-18 | Outpatient (CLI) | payer MEDICARE, BC ==
[2021-10-18] VITALS (9 sets, daily range): BP systolic 126–202; BP diastolic 77–116; PULSE 72–81; TEMP 98.1
[~2021-10-18] VITALS: Ht 162.6 cm; Wt 91.8 kg
[~2021-10-18] MED LIST changes: +ARAVA10 MG PO; +BYSTOLIC10 MG PO; +DEMADEX 20MG20 M1 PO; +INCRUSE EL62.5 MCG/A IH; +JARDIANCE10; +MUCINEX D1 TER PO; +NATURAL IRON65 MG PO; +VITAMIN D31000 I1 PO; +VITAMINC1000TA PO; +ZANAFLEX 4MG TAB4 MG PO; +ZOFRAN ODT4 MG PO; +ZYRTEC 10MG10 MG PO
== END ==
LOC: COL.RAD 06:54
DX: C34.31 Malignant neoplasm of lower lobe, right bronchus or lung (principal); C78.1 Secondary malignant neoplasm of mediastinum; C77.1 Secondary and unspecified malignant neoplasm of intrathoracic lymph nodes; J44.9 Chronic obstructive pulmonary disease, unspecified
CPT/HCPCS: J2250; J3010

== ENCOUNTER 2022-04-09 16:57 | Inpatient (IN) | payer MEDICARE, BC ==
[~2022-04-09] VITALS: Ht 162.6 cm; Wt 75.0 kg
[~2022-04-09 16:57] MED LIST changes: +ALBUTEROL0.83 MG/ML IH; +AMOXICILLIN 50500 MG PO; +DOXYCYCLINE HY100 MG PO; +K-TAB20 PO; +NORCO 325 MG-51 TAB PO; +PREDNISONE20 MG PO; +TYLENOL 500MG500 MG PO; +ZITHROMAX TRI-500 MG PO
[2022-04-09 17:20] VITALS: BP 157/96; PULSE 95; TEMP 98.6
[2022-04-09] MEDS ORDERED: ALBUTEROL0.83 MG/ML IH (17:29)
[2022-04-09] MEDS ORDERED: BYSTOLIC10 MG PO (17:33)
[2022-04-09] MEDS ORDERED: CENTRUM SILVER1 CTB PO (17:37)
[2022-04-09 17:47] LABS: ARTERIAL BLD GAS O2 SATURATION 93.7 % (92-100); ARTERIAL BLD GAS TCO2 CT 25.2; ARTERIAL BLOOD GAS BASE EXCESS -0.4 (-2-2); ARTERIAL BLOOD GAS PCO2 38.3 mmHg (35-45); ARTERIAL BLOOD GAS PO2 68.5 mmHg (80-100); ARTERIAL BLOOD GAS pH 7.42 (7.35-7.45)
[2022-04-09] MEDS ORDERED: DAZIDOX10 MG PO (17:50)
[2022-04-09] MEDS ORDERED: IPRATROPIUM BROM3 M1 IH (17:58)
[2022-04-09] MEDS ORDERED: PERFOROMIS20 MCG/2 M IH (18:02)
[2022-04-09] MEDS ORDERED: PULMICORT0.5 MG/2 M IH (18:03)
[2022-04-09 18:05] LABS: MEAN CELL VOLUME 78 fl (80.0-100.0); MEAN CORPUSCULAR HGB CONC 30 g/dl (33.0-37.0); MEAN PLATELET VOLUME 8.9 fl (7.4-10.4); PLATELET COUNT 350 K/mm3 (130-400); RED BLOOD COUNT 4.26 M/mm3 (4.10-5.30); REDCELL DISTRIBUTION WIDTH-CV 19.6 % (11.5-14.5)
[2022-04-09 18:08] LABS: HEMATOCRIT 33.4 % (37.0-47.0); HEMOGLOBIN 9.9 g/dl (12.5-16.0); MEAN CORPUSCULAR HEMOGLOBIN 23 pg (27-31)
[2022-04-09 18:34] LABS: ALBUMIN 2.7 gm/dL (3.4-4.8); BILIRUBIN,TOTAL 0.3 mg/dL (0.2-1.2); CALCIUM 9.6 mg/dL (8.4-10.2); CREATININE, serum 0.74 mg/dL (0.57-1.11); MAGNESIUM 2.1 mg/dL (1.6-2.6); POTASSIUM 3.8 mmol/L (3.5-4.5); TOTAL PROTEIN 6.6 gm/dL (6.2-8.1)
[2022-04-09 19:27] LABS: ANISOCYTOSIS 2+; BAND 2 % (0-10); LYMPHOCYTE 4 % (20.0-51.0); MICROCYTOSIS 1+; NEUTROPHILS 91 % (42.0-75.2); PLATELET ESTIMATE NORMAL (NORMAL)
[2022-04-09 19:28] LABS: HYPOCHROMIA 3+; STOMATOCYTE 1+
[2022-04-09 19:30] VITALS: BP 184/89; PULSE 103; TEMP 97.9
[2022-04-09 22:17] VITALS: BP 153/74
[2022-04-09 23:11] VITALS: BP 155/81; PULSE 99; TEMP 98
[2022-04-10 03:15] VITALS: BP 156/88; PULSE 91; TEMP 98
[2022-04-10 07:11] LABS: CALCIUM 9.1 mg/dL (8.4-10.2); CREATININE, serum 0.73 mg/dL (0.57-1.11); MAGNESIUM 2.2 mg/dL (1.6-2.6); POTASSIUM 4.1 mmol/L (3.5-4.5)
[2022-04-10 07:19] LABS: MEAN CELL VOLUME 79 fl (80.0-100.0); MEAN CORPUSCULAR HGB CONC 29 g/dl (33.0-37.0); MEAN PLATELET VOLUME 9.1 fl (7.4-10.4); PLATELET COUNT 337 K/mm3 (130-400); RED BLOOD COUNT 4.08 M/mm3 (4.10-5.30); REDCELL DISTRIBUTION WIDTH-CV 19.6 % (11.5-14.5)
[2022-04-10 07:20] LABS: HEMATOCRIT 32.4 % (37.0-47.0); HEMOGLOBIN 9.5 g/dl (12.5-16.0); MEAN CORPUSCULAR HEMOGLOBIN 23 pg (27-31)
[2022-04-10 07:48] LABS: BAND 5 % (0-10); LYMPHOCYTE 1 % (20.0-51.0); NEUTROPHILS 94 % (42.0-75.2)
[2022-04-10 07:49] LABS: ANISOCYTOSIS 2+; HYPOCHROMIA 3+; PLATELET ESTIMATE NORMAL (NORMAL)
[2022-04-10 07:50] LABS: MICROCYTOSIS 1+; OVALOCYTES 1+
[2022-04-10 09:00] VITALS: BP 150/87; PULSE 94; TEMP 98
[2022-04-10 11:52] VITALS: BP 134/65; PULSE 101; TEMP 97.6
[2022-04-10 15:37] VITALS: BP 154/78; PULSE 95; TEMP 98.4
[2022-04-10 19:51] VITALS: BP 150/72; PULSE 102; TEMP 98
[2022-04-10 23:23] VITALS: BP 128/80; PULSE 100; TEMP 97.6
[2022-04-11 03:27] VITALS: BP 141/75; PULSE 92; TEMP 97.6
[2022-04-11 07:18] LABS: C-REACTIVE PROTEIN 4.37 mg/dL (0.00-0.50); CALCIUM 9.2 mg/dL (8.4-10.2); CREATININE, serum 0.92 mg/dL (0.57-1.11); POTASSIUM 3.5 mmol/L (3.5-4.5)
[2022-04-11 08:10] LABS: MEAN CELL VOLUME 78 fl (80.0-100.0); MEAN CORPUSCULAR HGB CONC 30 g/dl (33.0-37.0); MEAN PLATELET VOLUME 8.8 fl (7.4-10.4); PLATELET COUNT 364 K/mm3 (130-400); REDCELL DISTRIBUTION WIDTH-CV 19.8 % (11.5-14.5)
[2022-04-11 08:11] LABS: HEMATOCRIT 31.1 % (37.0-47.0); HEMOGLOBIN 9.4 g/dl (12.5-16.0); MEAN CORPUSCULAR HEMOGLOBIN 24 pg (27-31)
[2022-04-11 08:20] VITALS: BP 157/73; PULSE 89; TEMP 98.1
[2022-04-11 08:54] LABS: BAND 2 % (0-10); LYMPHOCYTE 2 % (20.0-51.0); NEUTROPHILS 92 % (42.0-75.2); NUCLEATED RED BLOOD CELL 1 (0-6)
[2022-04-11 08:55] LABS: ANISOCYTOSIS 2+; MICROCYTOSIS 1+
[2022-04-11 08:56] LABS: OVALOCYTES 1+; POLYCHROMASIA 1+
[2022-04-11] MEDS ORDERED: CEFTIN500 MG PO (09:34)
[2022-04-11] MEDS ORDERED: DOXYCYCLINE 10100 MG PO (09:34)
[2022-04-11] MEDS ORDERED: MUCUS RELIEF400 M1 PO (09:35)
[2022-04-11] MEDS ORDERED: PREDNISONE10 MG PO (09:37)
[2022-04-11 11:32] VITALS: BP 168/83; PULSE 104; TEMP 98.2
== END 2022-04-11 12:05 | disposition home or self-care (01) | DRG 193 ==
LOC: MEDICAL 16:57
PROVIDERS: Physician Assistant; ADMIT Internal Medicine
DX: J18.9 Pneumonia, unspecified organism (principal); J96.21 Acute and chronic respiratory failure with hypoxia; E44.0 Moderate protein-calorie malnutrition; C34.90 Malignant neoplasm of unspecified part of unspecified bronchus or lung; M06.9 Rheumatoid arthritis, unspecified; M81.0 Age-related osteoporosis without current pathological fracture; I48.91 Unspecified atrial fibrillation; I27.20 Pulmonary hypertension, unspecified; G25.81 Restless legs syndrome; J44.9 Chronic obstructive pulmonary disease, unspecified; I12.9 Hypertensive chronic kidney disease with stage 1 through stage 4 chronic kidney disease, or unspecified chronic kidney disease; N18.30 Chronic kidney disease, stage 3 unspecified; Z23 Encounter for immunization; Z98.51 Tubal ligation status; Z90.89 Acquired absence of other organs; Z90.49 Acquired absence of other specified parts of digestive tract; Z88.8 Allergy status to other drugs, medicaments and biological substances; Z91.041 Radiographic dye allergy status; Z68.28 Body mass index [BMI] 28.0-28.9, adult
CPT/HCPCS: J0692; J1644; J2920

== ENCOUNTER 2022-05-03 14:17 | Inpatient (IN) | payer MEDICARE, BC ==
[~2022-05-03] VITALS: Ht 165.1 cm; Wt 74.9 kg
[~2022-05-03 14:17] MED LIST changes: +CEFTIN500 MG PO; +CENTRUM SILVER1 CTB PO; +DAZIDOX10 MG PO; +DOXYCYCLINE 10100 MG PO; +IPRATROPIUM BROM3 M1 IH; +MUCUS RELIEF400 M1 PO; +PERFOROMIS20 MCG/2 M IH; +PULMICORT0.5 MG/2 M IH
[2022-05-03 14:54] LABS: HEMOGLOBIN 10.1 g/dl (12.5-16.0); MEAN CELL VOLUME 79 fl (80.0-100.0); MEAN CORPUSCULAR HEMOGLOBIN 24 pg (27-31); MEAN CORPUSCULAR HGB CONC 30 g/dl (33.0-37.0); MEAN PLATELET VOLUME 8.5 fl (7.4-10.4); PLATELET COUNT 276 K/mm3 (130-400); RED BLOOD COUNT 4.21 M/mm3 (4.10-5.30); REDCELL DISTRIBUTION WIDTH-CV 21.2 % (11.5-14.5)
[2022-05-03 14:55] LABS: HEMATOCRIT 33.4 % (37.0-47.0)
[2022-05-03 15:11] LABS: ALBUMIN 2.2 gm/dL (3.4-4.8); BILIRUBIN,TOTAL 0.3 mg/dL (0.2-1.2); CALCIUM 8.8 mg/dL (8.4-10.2); CREATININE, serum 0.88 mg/dL (0.57-1.11); POTASSIUM 3.6 mmol/L (3.5-4.5); TOTAL PROTEIN 5.7 gm/dL (6.2-8.1)
[2022-05-03 15:20] LABS: TROPONIN-I 0.036 ng/mL (0.00-0.033)
[2022-05-03 15:41] LABS: BAND 20 % (0-10); EOSINOPHIL 1 % (0-4); LYMPHOCYTE 4 % (20.0-51.0); NEUTROPHILS 75 % (42.0-75.2); NUCLEATED RED BLOOD CELL 1 (0-6); PLATELET ESTIMATE NORMAL (NORMAL)
[2022-05-03 15:42] LABS: HYPOCHROMIA 3+
[2022-05-03 15:43] LABS: ANISOCYTOSIS 2+
[2022-05-03 17:48] VITALS: BP 127/77; PULSE 117; TEMP 97.8
[2022-05-03] MEDS ORDERED: TAGRISSO80 MG PO (17:56)
[2022-05-03] MEDS ORDERED: ZANAFLEX2 MG PO (18:03)
[2022-05-03] MEDS ORDERED: NARCAN4 MG NAS (18:04)
[2022-05-03] MEDS ORDERED: ZYRTEC 10MG10 MG PO (18:05)
[2022-05-03] MEDS ORDERED: K-TAB20 PO (18:06)
--- NOTE | 2022-05-03 18:30 | NUR ---
Vancomycin Initial Dosing Pharmacy Note Ordering provider: Juan Fernandes MD Indication/duration: MULTIFOCAL PNA, 7 days LABS: SCr 0.88, CrCl~66, GFR 67 Recommendation: Will start Vancomycin 1 gm IV q12h. Pharmacy will continue to closely montior and check a trough on 05/05/22. Maintenance dose: 1 gram every 12 hours Trough goal: 15-20 ug/mL
[2022-05-03 19:05] LABS: INR 1.2 (0.8-3.0); PROTHROMBIN TIME 13.5 SECONDS (9.7-12.8)
[2022-05-03 19:08] LABS: PARTIAL THROMBOPLASTIN TIME 27.2 SECONDS (26.0-37.0)
--- NOTE | 2022-05-03 19:29 | NUR ---
Pt up to medical floor, alert and oriented. States she feels weak and has been having increased shortness of breath for the last couple weeks. Patient and family oriented to the room, vital signs taken and admission assessment and med rec complete. Patient weak but able to turn herself in bed and stand up with assistance. Edema in bilateral lower extremities. Assisted to order dinner, given medications as ordered. No complaints of chest pain at this time. Bed in lowest position with call light within reach.
[2022-05-03 20:21] VITALS: BP 110/70; PULSE 105; TEMP 98.3
[2022-05-03 23:58] VITALS: BP 115/74; PULSE 103; TEMP 98.3
[2022-05-04 03:52] VITALS: BP 107/77; PULSE 93; TEMP 98.2
[2022-05-04 05:24] LABS: CALCIUM 8.2 mg/dL (8.4-10.2); CREATININE, serum 0.79 mg/dL (0.57-1.11); POTASSIUM 3.9 mmol/L (3.5-4.5)
[2022-05-04 05:25] LABS: MEAN CELL VOLUME 81 fl (80.0-100.0); MEAN CORPUSCULAR HGB CONC 30 g/dl (33.0-37.0); MEAN PLATELET VOLUME 8.9 fl (7.4-10.4); PLATELET COUNT 246 K/mm3 (130-400); RED BLOOD COUNT 3.65 M/mm3 (4.10-5.30); REDCELL DISTRIBUTION WIDTH-CV 21.2 % (11.5-14.5)
[2022-05-04 05:30] LABS: HEMATOCRIT 29.5 % (37.0-47.0); HEMOGLOBIN 8.7 g/dl (12.5-16.0); MEAN CORPUSCULAR HEMOGLOBIN 24 pg (27-31)
[2022-05-04 05:32] LABS: TROPONIN-I 0.021 ng/mL (0.00-0.033)
[2022-05-04 06:00] LABS: ANISOCYTOSIS 2+; BAND 12 % (0-10); HYPOCHROMIA 3+; LYMPHOCYTE 3 % (20.0-51.0); METAMYELOCYTE 1 % (0-0); NEUTROPHILS 84 % (42.0-75.2); PLATELET ESTIMATE NORMAL (NORMAL)
[2022-05-04 06:01] LABS: OVALOCYTES 1+
[2022-05-04 07:27] VITALS: BP 124/78; PULSE 89; TEMP 97.6
[2022-05-04 08:23] LABS: COLLECTION METHOD CLEAN CATCH
[2022-05-04 08:33] LABS: MUCOUS Present (NOT PRESENT); URINE BACTERIA None Seen /hpf (NONE SEEN); URINE RBC 0-2 /hpf (0-2)
[2022-05-04 08:38] LABS: PH 5.5 (5.0-8.5); URINE APPEARANCE Clear (CLEAR/HAZY); URINE BLOOD Negative (NEGATIVE); URINE COLOR Yellow (YELLOW); URINE GLUCOSE 2+ (NEGATIVE); URINE KETONE Negative (NEGATIVE); URINE NITRATE Negative (NEGATIVE); URINE PROTEIN(semi-quant) 2+ (NEGATIVE); URINE UROBILINOGEN 0.2 E.U/dL (0.2-1.0)
[2022-05-04 11:12] VITALS: BP 106/59; PULSE 106; TEMP 98.1
--- NOTE | 2022-05-04 11:37 | NUR ---
Nozzle Operator met with patient and spouse Shawn Chopra ([phone]) at patient bedside. Patient is alert and oriented and gives verbal consent to speak to her with spouse "The Boss" present. She states they are for 59 years and live together in a 1 story house in [place]; there are two steps to enter the home, and she is normally able to ambulate and navigate these stairs without any difficulty. However, the past three weeks, she has experienced "weakness of the knees." She reports no use of walker/cane, but does have a walker as needed. She is able to transfer to her shower chair/bath bench, and her spouse is assisting her shower. She has a toilet riser at home, and a nebulizer, utilizes 5L oxygen at home, at baseline. Her spouse is currently completing the household activities, including laundry, housekeeping and meal preparation with the hopes she will recover and return to her usual duties. Both patient and spouse do not believe attendant care is needed to support them in their ADLs/IADLs, upon discharge to home. Patient is open to services, and her daughter has contacted [facility] to initiate services. Patient does not yet know what services she may be recommended. She also works with a technical healthcare consultant Mary Freitas ([phone]) through her primary care physician Dr. Naila Calhoun's office, who is actively engaged in her care and helping her obtain a wheelchair. Patient has a DPOA-HC completed at home that lists her spouse Shawn as her primary agent and all three of her daughters: Marianna Hester, Mirna Gill, and Erum Vogt as her secondary agents. Patient sees Dr. Maxwell for oncology and has completed radiation for lung cancer, waiting to start chemo. She saw Dr. Ivan for radiation. She has a pulmonology consultation pending. Patient obtains her medications without any difficulty at [facility] in [place]. Patient struggled to eat her breakfast due to sores in her mouth; she would like pudding or jello. No other concerns reported at this time. Nozzle Operator updated Anika SMITH re: patient request for pudding or jello. *Discharge to home with [facility] and PCP care management as indicated*
[2022-05-04 15:07] VITALS: BP 123/61; PULSE 107; TEMP 97.6
[2022-05-04 20:35] VITALS: BP 121/74; PULSE 95; TEMP 98
[2022-05-05 00:30] VITALS: BP 140/79; PULSE 98; TEMP 98
[2022-05-05 04:50] VITALS: BP 147/77; PULSE 101; TEMP 97.5
[2022-05-05 07:00] VITALS: BP 148/71; PULSE 116; TEMP 98.1
[2022-05-05 09:18] LABS: MEAN CELL VOLUME 82 fl (80.0-100.0); MEAN CORPUSCULAR HGB CONC 29 g/dl (33.0-37.0); MEAN PLATELET VOLUME 9.1 fl (7.4-10.4); PLATELET COUNT 281 K/mm3 (130-400); RED BLOOD COUNT 3.56 M/mm3 (4.10-5.30); REDCELL DISTRIBUTION WIDTH-CV 20.9 % (11.5-14.5)
[2022-05-05 09:19] LABS: HEMATOCRIT 29.2 % (37.0-47.0); HEMOGLOBIN 8.5 g/dl (12.5-16.0); MEAN CORPUSCULAR HEMOGLOBIN 24 pg (27-31)
--- NOTE | 2022-05-05 09:53 | NUR ---
Vancomycin Follow-up Pharmacy Note Current regimen: Vancomycin 1 gm IV q12h Vancomycin trough: 19.94 Adjustments: Will decrease Vancomycin to 750 mg IV q12h. Pharmacy will continue to closely monitor and check a trough on 05/07/22.
[2022-05-05 11:27] VITALS: BP 145/75; PULSE 88; TEMP 97.8
--- NOTE | 2022-05-05 12:16 | NUR ---
Looseleaf Binder Coverer rounds: Looseleaf Binder Coverer visit attempted. RN was with Patient.
--- NOTE | 2022-05-05 12:52 | NUR ---
PATIENT AWAKE AND ALERT, SITTING IN RECLINER EATING LUNCH, IN ROOM. IV ANTX INFUSING. PATIENTS CALL LIGHT WITHIN REACH. PATIENT DENIES ANY NEEDS OR COMPLAINTS AT THIS TIME.
--- NOTE | 2022-05-05 14:26 | NUR ---
JEREMY charting reviewed, agree with documentation. Hang Begum RN
[2022-05-05 15:00] VITALS: BP 141/79; PULSE 93
[2022-05-05 19:36] VITALS: BP 132/79; PULSE 102; TEMP 98.3
[2022-05-06 00:01] VITALS: BP 129/66; PULSE 99; TEMP 98.2
[2022-05-06 03:30] VITALS: BP 118/93; PULSE 96; TEMP 97.4
[2022-05-06 06:38] LABS: CREATININE, serum 0.9 mg/dL (0.57-1.11)
[2022-05-06 07:44] VITALS: BP 164/90; PULSE 120; TEMP 97.5
[2022-05-06 07:49] LABS: MEAN CELL VOLUME 80 fl (80.0-100.0); MEAN CORPUSCULAR HGB CONC 30 g/dl (33.0-37.0); MEAN PLATELET VOLUME 9.1 fl (7.4-10.4); PLATELET COUNT 246 K/mm3 (130-400); RED BLOOD COUNT 3.38 M/mm3 (4.10-5.30)
[2022-05-06 07:51] LABS: HEMOGLOBIN 8.2 g/dl (12.5-16.0); MEAN CORPUSCULAR HEMOGLOBIN 24 pg (27-31)
[2022-05-06 07:58] LABS: CALCIUM 8.3 mg/dL (8.4-10.2); CREATININE, serum 0.92 mg/dL (0.57-1.11); POTASSIUM 3.9 mmol/L (3.5-4.5)
[2022-05-06 08:50] LABS: BAND 6 % (0-10); HYPOCHROMIA 3+; LYMPHOCYTE 2 % (20.0-51.0); MICROCYTOSIS 1+; NEUTROPHILS 92 % (42.0-75.2)
[2022-05-06 08:51] LABS: ANISOCYTOSIS 2+; OVALOCYTES 1+
[2022-05-06 08:54] LABS: PLATELET ESTIMATE NORMAL (NORMAL); SPHEROCYTE 1+
--- NOTE | 2022-05-06 11:42 | NUR ---
[facility] AWARE OF PICC LINE PLACEMENT ORDERS AND WILL NOTIFY RN FOR TIME OF PLACEMENT.
--- NOTE | 2022-05-06 11:44 | NUR ---
PHARMACY AWARE IV ANTX WILL HAVE TO BE RETIMED LATER. IV ASCESS LOST. UNABLE TO INFUSE 10 AM ZOSYN. PATIENT IS HARD STICK. HOWEVER, PICC PLACEMENT ORDERS IN PATIENT MAY HAVE 1-2 PATIENTS AHEAD OF HER FOR PICC PLACEMENT, WILL CALL LATER FOR RETIMING ON ANTX WHEN WE HAVE ACCESS.
[2022-05-06 13:06] VITALS: BP 181/92; PULSE 108; TEMP 97.1
--- NOTE | 2022-05-06 14:24 | NUR ---
JEREMY charting reviewed, agree with documentation. SARAH Lopes Clinical Instructor
--- NOTE | 2022-05-06 16:30 | NUR ---
Ice Crusher collaborated with Treatment Team to discuss discharge planning. Physician Dr. Bennett reccomended referal to [facility]. NICKIE sent referral documents to Chivo at [facility]. Gurmeet reported to be able to clinically accept Patient and will review open bed count in the AM and will follow-up with NICKIE on acceptance date. Discharge Plan: [facility], clinically accepted, pending bed availability.
[2022-05-06 16:46] VITALS: BP 147/71; PULSE 93; TEMP 97.5
--- NOTE | 2022-05-06 19:06 | NUR ---
PATIENT AWAKE AND ALERT, RESTINGIN BED, CALL LIGHT WITHIN REACH. DENEIS ANY NEEDS OR COMPLAINTS AT THIS TIME. BED ALARM ON.
[2022-05-06 19:08] VITALS: BP 164/86; BP 177/91; PULSE 97; TEMP 98.2
[2022-05-07] VITALS (7 sets, daily range): BP systolic 136–160; BP diastolic 70–87; PULSE 79–109; TEMP 97.5–98.4
[2022-05-07 07:06] LABS: MEAN CELL VOLUME 79 fl (80.0-100.0); MEAN CORPUSCULAR HGB CONC 30 g/dl (33.0-37.0); MEAN PLATELET VOLUME 8.7 fl (7.4-10.4); PLATELET COUNT 211 K/mm3 (130-400); RED BLOOD COUNT 3.11 M/mm3 (4.10-5.30); REDCELL DISTRIBUTION WIDTH-CV 21.2 % (11.5-14.5)
[2022-05-07 07:11] LABS: HEMATOCRIT 24.7 % (37.0-47.0); HEMOGLOBIN 7.4 g/dl (12.5-16.0); MEAN CORPUSCULAR HEMOGLOBIN 24 pg (27-31)
[2022-05-07 07:28] LABS: CALCIUM 8.1 mg/dL (8.4-10.2); CREATININE, serum 0.84 mg/dL (0.57-1.11); POTASSIUM 3.7 mmol/L (3.5-4.5)
[2022-05-07 08:20] LABS: LYMPHOCYTE 4 % (20.0-51.0); METAMYELOCYTE 0 % (0-0); NEUTROPHILS 92 % (42.0-75.2)
[2022-05-07 08:21] LABS: ANISOCYTOSIS 2+; HYPOCHROMIA 3+; MICROCYTOSIS 1+; OVALOCYTES 1+; PLATELET ESTIMATE NORMAL (NORMAL)
--- NOTE | 2022-05-07 09:00 | NUR ---
Patient is resting in bed, at the bedside. Alert and oriented x 4, cooperative. Denies any pain or SOB at this time. Assessment completed. No further needs, call light within reach.
--- NOTE | 2022-05-07 11:21 | NUR ---
Hydraulic Jack Adjuster collaborated with Gurmeet from [facility] to speak with Patient and her about the option for [facility] care to meet her needs after discharge. Gurmeet reviewed Patient's information and clinically accepted Patient, pending bed placment tomorrow. Patient and accepted this discharge plan. Discharge Plan: [facility], clinical accept pending bed availability.
[2022-05-08 04:56] VITALS: BP 154/78; PULSE 74; TEMP 97.5
--- NOTE | 2022-05-08 07:08 | NUR ---
pt on 4L O2 per NC, continues to have SOB when up to bsc. PICC in [place] patent/secure. am labs drawn without difficulty.
[2022-05-08 08:00] VITALS: BP 159/82; PULSE 95; TEMP 97.4
--- NOTE | 2022-05-08 09:30 | NUR ---
Pt with lg dark loose incontinent stool. Also has several smaller continent stools within short time. Pt is given immodium per PRN orders.
[2022-05-08 12:26] VITALS: BP 160/87; PULSE 83; TEMP 97.8
[2022-05-08] MEDS ORDERED: NORVASC 5MG5 MG/TAB PO (15:47)
[2022-05-08] MEDS ORDERED: NYSTATIN OR100 MU/ML PO (15:49)
[2022-05-08] MEDS ORDERED: ELIQUIS 5MG PO (15:50)
[2022-05-08 15:52] VITALS: BP 118/60; PULSE 80; TEMP 97.5
[2022-05-08 19:58] VITALS: BP 170/89; PULSE 88; TEMP 97.5
[2022-05-08 21:47] LABS: CLOSTRIDIUM DIFF A/B NEG
[2022-05-09 00:01] VITALS: BP 140/75; PULSE 77; TEMP 97.9
[2022-05-09 05:11] VITALS: BP 141/79; PULSE 73; TEMP 97.9
--- NOTE | 2022-05-09 05:47 | NUR ---
continues to require 4L O2 per NC, stool specimen sent to lab last noc, no further stools. PICC in STEFANY patent/secure, lab drawn per red port w/o difficulty.
[2022-05-09 07:32] LABS: MEAN CELL VOLUME 80 fl (80.0-100.0); MEAN CORPUSCULAR HGB CONC 31 g/dl (33.0-37.0); MEAN PLATELET VOLUME 9.3 fl (7.4-10.4); PLATELET COUNT 200 K/mm3 (130-400); RED BLOOD COUNT 2.92 M/mm3 (4.10-5.30); REDCELL DISTRIBUTION WIDTH-CV 21.5 % (11.5-14.5)
[2022-05-09 07:38] LABS: HEMATOCRIT 23.4 % (37.0-47.0); HEMOGLOBIN 7.2 g/dl (12.5-16.0); MEAN CORPUSCULAR HEMOGLOBIN 25 pg (27-31)
[2022-05-09 07:41] LABS: CALCIUM 8.3 mg/dL (8.4-10.2); CREATININE, serum 0.82 mg/dL (0.57-1.11); POTASSIUM 3.6 mmol/L (3.5-4.5)
[2022-05-09 08:41] VITALS: BP 150/71; PULSE 76; TEMP 97.5
[2022-05-09 09:06] LABS: BAND 1 % (0-10); LYMPHOCYTE 3 % (20.0-51.0); MYELOCYTE 3 % (0-0); NEUTROPHILS 85 % (42.0-75.2); NUCLEATED RED BLOOD CELL 1 (0-6)
[2022-05-09 09:07] LABS: OVALOCYTES 1+; PLATELET ESTIMATE NORMAL (NORMAL)
[2022-05-09 09:08] LABS: ANISOCYTOSIS 2+; HYPOCHROMIA 3+
[2022-05-09 09:09] LABS: POLYCHROMASIA 1+
[2022-05-09 12:44] VITALS: BP 123/58; PULSE 80; TEMP 97.4
--- NOTE | 2022-05-09 12:58 | NUR ---
Vancomycin Follow-up Pharmacy Note Current regimen: VANC 500 MG Q12H Vancomycin trough: 21.2 Adjustments: SWITCH TO VANC 750 MG Q24H. TROUGH IF CLINICALLY INDICATED
[2022-05-09 16:10] VITALS: BP 129/66; PULSE 80; TEMP 97.4
--- NOTE | 2022-05-09 18:30 | NUR ---
PATIENT IS AXOX4. SBA TO THE BEDSIDE COMMODE. NSR ON TELE. PATIENT HAS BLACK STOOLS, BUT TAKES IRON. VSS. ON PRECAUTIONS FOR CDIFF +ANTIGEN. PATIENT IS ACCEPTED FOR A BED AT [facility] IN , BUT IS THIRD IN LINE. PATIENT HAS A RA PICC DOUBLE LUMEN. SHE IS RECEIVING ZOSYN, VANC, AND SOLUMEDROL IV. PATIENT IS STILL ON 4L NC. HAS THRUSH, SO PATIENT HAS NYSTATIN FOR GARGLE AND SPIT. BED ALARM ON. NO OTHER SIGNIFICANT CHANGES.
[2022-05-09 19:47] VITALS: BP 149/74; PULSE 91; TEMP 98
--- NOTE | 2022-05-09 20:00 | NUR ---
PATIENT IS RESTING IN BED.PATIENT DENIES PAIN AND SOB.PATIENT TAKES PILLS WHOLE WITH NO TROUBLE.PATIENT IS ON SUPPLEMENTAL OXYGEN VIA NC.SAFETY MEASURES IN PLACE.NO OTHER NEEDS AT THIS TIME.
[2022-05-10 00:12] VITALS: BP 148/81; PULSE 72; TEMP 98.1
[2022-05-10 03:50] VITALS: BP 152/72; PULSE 74; TEMP 98.1
--- NOTE | 2022-05-10 06:16 | NUR ---
PATIENT SLEPT THROUGH THE NIGHT.SAFETY MEASURES IN PLACE.NO OTHER NEEDS AT THIS TIME.
[2022-05-10 06:42] LABS: MEAN CELL VOLUME 82 fl (80.0-100.0); MEAN CORPUSCULAR HGB CONC 30 g/dl (33.0-37.0); MEAN PLATELET VOLUME 9.5 fl (7.4-10.4); PLATELET COUNT 210 K/mm3 (130-400); RED BLOOD COUNT 2.92 M/mm3 (4.10-5.30); REDCELL DISTRIBUTION WIDTH-CV 22.1 % (11.5-14.5)
[2022-05-10 06:45] LABS: HEMATOCRIT 23.8 % (37.0-47.0); HEMOGLOBIN 7.1 g/dl (12.5-16.0); MEAN CORPUSCULAR HEMOGLOBIN 24 pg (27-31)
[2022-05-10 06:56] LABS: CALCIUM 8.3 mg/dL (8.4-10.2); CREATININE, serum 0.75 mg/dL (0.57-1.11); POTASSIUM 3.8 mmol/L (3.5-4.5)
[2022-05-10 07:38] LABS: BAND 1 % (0-10); LYMPHOCYTE 3 % (20.0-51.0); MYELOCYTE 5 % (0-0); NEUTROPHILS 89 % (42.0-75.2); NUCLEATED RED BLOOD CELL 2 (0-6); PLATELET ESTIMATE NORMAL (NORMAL)
[2022-05-10 07:39] LABS: HYPOCHROMIA 3+
[2022-05-10 07:40] LABS: OVALOCYTES 1+; SCHISTOCYTES 1+
[2022-05-10 07:41] LABS: POLYCHROMASIA 1+
[2022-05-10 07:48] LABS: ANISOCYTOSIS 3+
[2022-05-10 08:08] VITALS: BP 139/54; PULSE 92; TEMP 97.6
[2022-05-10 11:07] VITALS: BP 117/64; PULSE 80; TEMP 97.6
[2022-05-10 15:44] VITALS: BP 121/55; PULSE 97; TEMP 97.7
--- NOTE | 2022-05-10 16:00 | NUR ---
REPORT CALLED TO [facility]. ALL QUESTIONS ANSWERED AND CALL BACK NUMBER [email or web address].
--- NOTE | 2022-05-10 16:30 | NUR ---
PATIENT LEFT VIA EMS. PATIENT LEFT IN STABLE CONDITION.
== END 2022-05-10 16:30 | DRG 871 ==
LOC: COL.ER 14:17 → MEDICAL 15:45
PROVIDERS: Internal Medicine; Nurse Practitioner Family; Physician Assistant; ADMIT Student in an Organized Health Care Education/Training Program
PROC: 02HV33Z Insertion of Infusion Device into Superior Vena Cava, Percutaneous Approach (ICD-10-PCS; principal; 2022-05-07)
DX: A41.9 Sepsis, unspecified organism (principal); I26.92 Saddle embolus of pulmonary artery without acute cor pulmonale; J18.9 Pneumonia, unspecified organism; J96.21 Acute and chronic respiratory failure with hypoxia; J96.22 Acute and chronic respiratory failure with hypercapnia; C34.90 Malignant neoplasm of unspecified part of unspecified bronchus or lung; J44.0 Chronic obstructive pulmonary disease with (acute) lower respiratory infection; J44.1 Chronic obstructive pulmonary disease with (acute) exacerbation; B37.0 Candidal stomatitis; E44.0 Moderate protein-calorie malnutrition; I82.413 Acute embolism and thrombosis of femoral vein, bilateral; D84.9 Immunodeficiency, unspecified; R19.7 Diarrhea, unspecified; D50.9 Iron deficiency anemia, unspecified; G25.81 Restless legs syndrome; I48.91 Unspecified atrial fibrillation; M81.0 Age-related osteoporosis without current pathological fracture; M06.9 Rheumatoid arthritis, unspecified; I12.9 Hypertensive chronic kidney disease with stage 1 through stage 4 chronic kidney disease, or unspecified chronic kidney disease; N18.30 Chronic kidney disease, stage 3 unspecified; D72.829 Elevated white blood cell count, unspecified; T38.0X5A Adverse effect of glucocorticoids and synthetic analogues, initial encounter; I27.20 Pulmonary hypertension, unspecified; Z79.51 Long term (current) use of inhaled steroids; Z79.52 Long term (current) use of systemic steroids; Z79.899 Other long term (current) drug therapy; Z79.2 Long term (current) use of antibiotics; Z87.891 Personal history of nicotine dependence; Z68.27 Body mass index [BMI] 27.0-27.9, adult; Z99.81 Dependence on supplemental oxygen
CPT/HCPCS: A9270; C1751; J0696; J1644; J2405; J2543; J2920; J2930; J3370; J7030; J7050; Q9967